=== PATIENT | female | born 1960 | race Caucasian/White ===

== ENCOUNTER 2022-07-01 14:45 | Outpatient (CLI) | payer MEDICARE, MEDICAID, SELFPAY ==
[2022-07-01 21:23] LABS: Chloride* 98 mmol/L (96-114); Sodium* 139 mmol/L (135-149)
[2022-07-01 21:36] LABS: Blood Urea Nitrogen* 27 mg/dL (7-30); Calcium* 9.4 mg/dL (8.4-10.6); Carbon Dioxide* 32 mmol/L (20-32); Creatinine* 1.3 mg/dL (0.5-1.5); Estimated Glomerular Filt Rate 46 ml/min; Glucose* 95 mg/dL (60-115)
== END 2022-07-01 14:46 | disposition home or self-care (01) ==
LOC: FRMREF 14:46
PROVIDERS: PCP Family Medicine; Visit Provider Family Medicine
DX: R73.03 Prediabetes (principal); I12.9 Hypertensive chronic kidney disease with stage 1 through stage 4 chronic kidney disease, or unspecified chronic kidney disease
CPT/HCPCS: 80048

== ENCOUNTER 2022-07-29 14:45 | Outpatient (CLI) | payer MEDICARE, MEDICAID, SELFPAY | END 2022-07-29 14:46 | disposition home or self-care (01) | LOC: FRMREF 08-02 11:16 | PROVIDERS: PCP Family Medicine; Visit Provider Family Medicine | DX: R39.198 Other difficulties with micturition (principal); I12.9 Hypertensive chronic kidney disease with stage 1 through stage 4 chronic kidney disease, or unspecified chronic kidney disease; N39.41 Urge incontinence; N18.30 Chronic kidney disease, stage 3 unspecified; E11.42 Type 2 diabetes mellitus with diabetic polyneuropathy | CPT/HCPCS: 87086 ==

== ENCOUNTER 2023-03-04 06:16 | Day surgery (SDC) | payer MEDICARE, MEDICAID, SELFPAY ==
[2023-03-04] VITALS (25 sets, daily range): BP systolic 87–129; BP diastolic 40–78; PULSE 56–78; RESP 16–20; TEMP 36.2–37.3; O2SAT 90–99; BMI 46.2
[2023-03-04] MEDS: LACTATED RINGERS 1000 ML 1,000 ML 100 ML IV (07:25)
[2023-03-04] MEDS: SODIUM CHLORIDE 0.9 % (FLUSH) 10 ML SYRINGE IVF (07:27)
[2023-03-04] MEDS: ACETAMINOPHEN 500 MG TABLET 1000 MG PO ×3 (07:48→21:33)
[2023-03-04] MEDS: OXYCODONE (CR) 10 MG TAB.ER.12H PO (07:49)
[2023-03-04] MEDS: CELECOXIB 200 MG CAPSULE PO (07:49)
[2023-03-04] MEDS: fentaNYL 100 MCG/2 ML inj IVP (08:05)
[2023-03-04] MEDS: MIDAZOLAM HCL 1 MG/ML inj IVP (08:05)
--- NOTE | 2023-03-04 08:15 | SUR.PREOP ---
TIME?OUT:?0800, left knee PT/RN/MDA?VERIFICATION?OF?SURGICAL?SITE,?PROCEDURE,?AND?CONSENT OBTAINED?PRIOR?TO?INVASIVE?PROCEDURE.
[2023-03-04] MEDS: CEFAZOLIN 2 GM INJ IVP (09:07)
--- NOTE | 2023-03-04 09:20 | W.PM.NB ---
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 Images saved: Yes Medications given in 5ml increments after negative aspiration: Ropivicaine %: 0.5 mL: 20 Needle gauge: 20 Decadron (mg): 10 Precedex (mcg): 25 Patient tolerated procedure well: Yes Additional comments: Needle noted adjacent to nerve Block Charges Block Charge (with Pro Fee): Femoral Nerve Use of Ultrasound Machine for Block: Yes- US Guidance/pain block
--- NOTE | 2023-03-04 09:20 | W.PM.NB ---
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
--- NOTE | 2023-03-04 09:21 | W.ANESCHARGE ---
Anesthesia Charges Start Date/Time Anesthesia Start Date: 03/04/23 Anesthesia Start Time: 08:47 Stop Date/Time Anesthesia Stop Date: 03/04/23 Anesthesia Stop Time: 11:01
--- NOTE | 2023-03-04 09:27 | SUR.OPER ---
PATIENT QUESTIONS ANSWERED SATISFACTORILY PREOPERATIVELY.? PATIENT BROUGHT TO OR #3 PER CART AFTER ADMINISTRATION OF A BLOCK.? Patient positioned supine on OR #3 bed.? The perioperative?team supported arms bilaterally on arm boards.? Final approval of positioning by surgeon.?
--- NOTE | 2023-03-04 10:10 | CRLHL7_ITS ---
For Patients: As a result of the Cures Act, medical imaging exams and procedure reports are released immediately into your electronic medical record. You may view this report before your referring provider. If you have questions, please contact your health care provider. Indication: Postop TKA Technique: Two views left knee Findings/Impression: Hardware from a left total knee arthroplasty is in satisfactory position. Bone alignment is normal. No sign of acute fracture. Postop changes are within normal limits. Dictated by Jesus Hsu MD @ 03/04/2023 11:20:44 AM (Electronically Signed)
--- NOTE | 2023-03-04 10:13 | PM.ORPRC ---
Procedure Note Date of procedure: 03/04/23 Procedure: PREOPERATIVE DIAGNOSIS: Left knee osteoarthritis POSTOPERATIVE DIAGNOSIS: Left knee osteoarthritis NAME OF OPERATION: Left total knee arthroplasty SURGEON: Enrique Ribeiro MD NEGOTIATOR SALES: [employer]ENN[employer] ANESTHESIA: Spinal ESTIMATED BLOOD LOSS: 0 mL COMPLICATIONS: None SPECIMENS: None DRAINS: None PREOPERATIVE ANTIBIOTICS: Ancef 2 grams, antibiotic impregnated cement IMPLANTS: 1. J&J Attune #4 posterior stabilized femur 2. #4 fixed-bearing tibia, 14 mm x 50 mm stem 3. #4 posterior stabilized, 5 mm fixed-bearing polyethylene 4. 35 patella INDICATIONS: The patient is a 62-year-old with a longstanding history of severe, unrelenting left knee pain secondary to end-stage (grade IV) left knee osteoarthritis. Despite appropriate nonoperative management, including activity modification, anti-inflammatories, ltqm-bwv-qrypjne pain medication, bracing, physical therapy, and injections they continue to have pain and disability. Operative intervention was offered. The risks, benefits and expected outcomes were discussed in detail. These included but were not limited to: Infection, bleeding, injury to blood vessel or nerve, venous thromboembolism. All questions were answered to their satisfaction. Use of an financial services assistant was necessary throughout the case for patient positioning and safety, soft tissue retraction, and closure. PROCEDURE: Spinal anesthesia was administered. The patient was placed supine on the operating table. The financial services assistant made sure the patient was positioned appropriately. The lower extremity was prepped and draped in the usual sterile fashion. The limb was exsanguinated with the Ren bandage. The pneumatic tourniquet was inflated to 300 mmHg. A standard anterior incision was made with the knee in flexion. Subcutaneous dissection was sharply taken through fascial layer #1. Full-thickness medial and lateral flaps were elevated. The financial services assistant retracted the soft tissues and protected them throughout the case. A standard medial parapatellar approach was made. The patella was everted. The infrapatellar fat pad was preserved. The menisci and cruciate ligaments were sharply d?brided. Marginal osteophytes were d?brided with the rongeur. The drill was used to penetrate the femoral canal. The canal was aspirated and irrigated with pulse lavage. The intramedullary femoral guide was placed for a 5-degree valgus cut, removing 10 mm off the distal femur. The saw was used to make the cut. Whitesides line and the trans epicondylar axis were marked. The femoral sizing guide was pinned onto the distal femur. Three degrees of external rotation nicely parallels the transepicondylar axis. Pins were placed for posterior referencing. The four-in-one cutting guide was pinned onto the distal femur. The anterior, posterior, and chamfer cuts were made. The financial services assistant protected the collateral ligaments. The box cutting guide was pinned. The box cuts were made. The boxed trial was placed and was an excellent fit. Drill holes for the lugs were made. Attention was then turned to the proximal tibia. The extramedullary tibial guide was placed for a neutral varus/valgus cut with 5 degrees of posterior slope, removing 1 mm based off the medial tibial surface. The financial services assistant protected the collateral ligaments and the neurovascular bundle. The saw was used to make the cut. Trial components were placed. The knee was nicely balanced in both flexion and extension. The trial components were removed. The tray was placed in appropriate rotation, parallel to our tibial cutting pins. It was pinned by the financial services assistant and the drills were used. The stemmed trial tibial tray was placed and the punch was used. The tray was removed. The punch was used again. We placed a bone plug in the femoral canal. Attention was then turned to the patella. Tangirnaq patellar thickness was 23 mm. The lobster claw resection guide was used with the 9.5 mm nasir. The saw was used to make the cut. Drill holes were made by the financial services assistant. The trial was placed and was an excellent fit. Cancellous surfaces were irrigated with pulse lavage and thoroughly dried by the financial services assistant. We cemented the tibial component, then the femoral component. We impacted the 5 mm polyethylene onto the tibial tray. The knee was brought into full extension. We then cemented the patellar component. Excessive cement was removed. The cement was allowed to harden. The knee was taken through a range of motion and was found to be nicely balanced in both flexion and extension. The patella tracks centrally. The financial services assistant did a three minute dilute Betadine solution soak. The financial services assistant irrigated the wound with 3 liters of normal saline via pulse lavage. The financial services assistant reapproximated the extensor mechanism with #1 Vicryl in an interrupted dwhkgj-rs-otgoi fashion. The financial services assistant then ran the extensor mechanism with a #1 PDO Stratafix. The financial services assistant closed the subcutaneous tissues with a 3-0 Stratafix and the skin with a running 3-0 Stratafix in a subcuticular fashion. Glue was used to seal the skin. The financial services assistant placed a dry dressing, ROSEANNA stocking, and Polar Care. Sponge and needle counts were correct x2. The patient tolerated the procedure well. There were no apparent complications. They were carefully transferred to the hospital bed and taken to the postanesthesia care unit in satisfactory condition. PLAN: The patient will be mobilized with physical therapy. Aspirin will be used for DVT prophylaxis. They will be discharged to home once medically appropriate.
[2023-03-04] MEDS: LACTATED RINGERS 1000 ML 1,000 ML 35 ML IV (10:56)
--- NOTE | 2023-03-04 11:11 | W.ANESCHARGE ---
Anesthesia Charges Start Date/Time Anesthesia Start Date: 03/04/23 Anesthesia Start Time: 08:47 Stop Date/Time Anesthesia Stop Date: 03/04/23 Anesthesia Stop Time: 11:01
[2023-03-04] MEDS: LACTATED RINGERS 1000 ML 1,000 ML 75 ML IV (13:00)
--- NOTE | 2023-03-04 15:22 | PC.NURSE ---
Patient arrived to the floor at 1135 am, alert and oriented x 3. Oriented patient to room, call light. Lung sounds clear, bowel sounds active x 4. O2 on at 2L per NC due to sats in upper 80s post surgical. Patient sats 99% upon arrival to unit, decreased to 1L and maintaining sats at 97%. Oxygen discontinued at 1350, patient requested oxygen to be placed back on at 1430 for comfort. Dressing to left knee CDI, cryocuff in place. Assisted patient to the bedside commode, able to void x 1. Tolerating fluids without nausea/vomiting. Up to chair, able to ambulate with walker. Pain reported at 1-2/10, given prn tylenol at 1445 per patient request.
[2023-03-04] MEDS: OXYCODONE 5 MG TABLET PO ×3 (16:44→23:27)
[2023-03-04] MEDS: CEFAZOLIN 2 GM in 0.9 % SODIUM CHLORIDE Mini-bag 100 ML IVPB ×2 (16:44→23:45)
[2023-03-04] MEDS: ASPIRIN 81 MG TABLET EC PO (21:33)
[2023-03-04] MEDS: SENNOSIDES 1 TAB TABLET 2 TAB PO (21:34)
--- NOTE | 2023-03-04 21:45 | PC.NURSE ---
Shift Note [id number]: Pt friendly, cooperative, and able to verbalize her needs. Moves well with assist x1 with GB and walker. Tolerating regular diet without difficulty. Great urine output. Surgical dressing to left knee is C,D,&I with active ice in place. Pain is well controlled with scheduled Tylenol and PRN 5mg Oxycodone. Pt plans to discharge home tomorrow with assistance from her sister. She has also requested a shower prior to discharge if possible.
[2023-03-05] MEDS: MELATONIN 3 MG TABLET PO (00:48)
[2023-03-05 03:00] VITALS: RESP 18
[2023-03-05] MEDS: OXYCODONE 5 MG TABLET PO ×3 (06:10→11:26)
[2023-03-05] MEDS: ACETAMINOPHEN 500 MG TABLET 1000 MG PO (06:11)
[2023-03-05 07:00] VITALS: BP 97/55; PULSE 69; RESP 18; TEMP 37.1; O2SAT 93; O2SAT 96
[2023-03-05 07:34] LABS: Basophils Percent Auto 0.1 % (0.0-3.0); Hematocrit 32.7 % (33.0-51.0); Hemoglobin* 10.2 gm/dL (12.0-16.0); Immature Granulocytes Pct Auto 0.2 %; Lymphocytes Percent Auto 14.9 % (20-44); Mean Corpuscular HGB Conc 31 gm/dL (32-36); Mean Corpuscular Hemoglobin 30 pg (26-34); Mean Corpuscular Volume 97 fL (80-100); Monocytes Percent Auto 7.9 % (0.0-11.0); Neutrophils Percent Auto 76.9 % (42.0-72.0); Platelet Count* 310 K/uL (140-440); RDW Coefficient of Variation % 13.9 % (11.5-15.5); Red Blood Count 3.39 m/uL (4.00-5.20); White Blood Count* 12.54 K/uL (4.50-11.00)
[2023-03-05 07:36] LABS: Sodium* 134 mmol/L (135-149)
[2023-03-05 07:39] LABS: Creatinine* 1.2 mg/dL (0.5-1.5); Est. Creatinine Clearance* 37.95; Estimated Glomerular Filt Rate 51 ml/min
[2023-03-05 07:40] LABS: Blood Urea Nitrogen* 26 mg/dL (7-30)
[2023-03-05 07:47] LABS: Slide Review Reflex No
[2023-03-05] MEDS: CEFAZOLIN 2 GM in 0.9 % SODIUM CHLORIDE Mini-bag 100 ML IVPB (07:54)
--- NOTE | 2023-03-05 08:51 | PM.ORPN ---
Subjective Subjective Time Seen by Provider: 07:20 Date Seen: 03/05/23 Principal diagnosis: Left total knee arthroplasty 03/04/2020 Interval history: Leigh is comfortable this morning. She has been ambulating well. She will discharge to home today. Ortho Exam Narrative Exam Narrative: Alert and oriented x3. Patient is in no acute distress. Converses without labored breathing. Hearing is grossly intact. Ambulates with a walker. Examination of the left knee shows the dressing is intact. Mild soft tissue edema. Mild effusion. She is able to straight leg raise. CMS is intact left lower extremity quad strength 5/5 bilateral calves are soft and nontender Const Vital Signs, click to edit/add: Vital Signs - 24 hr 03/04/23 10:56 03/04/23 11:00 03/04/23 11:05 Temperature 97.5 F L Pulse Rate 67 67 62 Pulse Rate [Right Pulse Oximeter] Respiratory Rate 20 19 20 Blood Pressure 92/69 98/56 L 109/56 L Blood Pressure [Left Arm] Pulse Oximetry 94 96 97 Oxygen Delivery Method Nasal Cannula Oxygen Flow Rate 2 03/04/23 11:10 03/04/23 11:15 03/04/23 11:20 Temperature 97.3 F L Pulse Rate 67 65 64 Pulse Rate [Right Pulse Oximeter] Respiratory Rate 16 16 18 Blood Pressure 92/53 L 99/50 L 102/53 L Blood Pressure [Left Arm] Pulse Oximetry 98 94 93 Oxygen Delivery Method Room Air Oxygen Flow Rate 03/04/23 11:25 03/04/23 13:28 03/04/23 11:45 Temperature 97.9 F 97.9 F Pulse Rate 66 68 Pulse Rate [Right Pulse Oximeter] 69 Respiratory Rate 16 18 18 Blood Pressure 100/56 L Blood Pressure [Left Arm] 98/46 L 108/49 L Pulse Oximetry 92 97 Oxygen Delivery Method Nasal Cannula Nasal Cannula Oxygen Flow Rate 2 1 03/04/23 12:00 03/04/23 12:15 03/04/23 12:30 Temperature 98.0 F Pulse Rate Pulse Rate [Right Pulse Oximeter] 64 62 65 Respiratory Rate 18 16 18 Blood Pressure Blood Pressure [Left Arm] 110/50 L 101/53 L 99/61 Pulse Oximetry 98 98 97 Oxygen Delivery Method Nasal Cannula Nasal Cannula Room Air Oxygen Flow Rate 1 1 03/04/23 11:43 03/04/23 15:00 03/04/23 15:00 Temperature 97.9 F Pulse Rate Pulse Rate [Right Pulse Oximeter] 69 78 Respiratory Rate 18 20 Blood Pressure Blood Pressure [Left Arm] 108/49 L Pulse Oximetry 98 90 Oxygen Delivery Method Nasal Cannula Oxygen Flow Rate 1 03/04/23 15:00 03/04/23 15:00 03/04/23 16:00 Temperature 97.6 F 98.1 F Pulse Rate Pulse Rate [Right Pulse Oximeter] 67 76 Respiratory Rate 20 18 18 Blood Pressure Blood Pressure [Left Arm] 110/40 L 105/47 L Pulse Oximetry 90 95 92 Oxygen Delivery Method Room Air Room Air Room Air Oxygen Flow Rate 03/04/23 17:00 03/04/23 19:08 03/04/23 23:43 Temperature 97.1 F L 97.7 F 99.1 F Pulse Rate Pulse Rate [Right Pulse Oximeter] 74 72 71 Respiratory Rate 18 18 18 Blood Pressure Blood Pressure [Left Arm] 129/76 124/68 97/74 Pulse Oximetry 93 93 94 Oxygen Delivery Method Room Air Room Air Room Air Oxygen Flow Rate 03/04/23 23:00 03/04/23 23:00 03/04/23 23:00 Temperature Pulse Rate Pulse Rate [Right Pulse Oximeter] 71 Respiratory Rate 18 18 Blood Pressure Blood Pressure [Left Arm] Pulse Oximetry 94 94 Oxygen Delivery Method Room Air Oxygen Flow Rate 03/05/23 03:00 03/05/23 07:00 Temperature 98.8 F Pulse Rate Pulse Rate [Right Pulse Oximeter] 69 Respiratory Rate 18 18 Blood Pressure Blood Pressure [Left Arm] 97/55 L Pulse Oximetry 96 Oxygen Delivery Method Oxygen Flow Rate Assessment and Plan Assessment and plan (1) Status post total left knee replacement: Problem details: 03/04/2023, Dr. Ribeiro Status: Acute Plan Plan for discharge is today to home if they meet discharge criteria. DVT prophylaxis includes aspirin 81 mg twice daily x1 month, Juan stockings x1 month may remove for 1 hr per day, frequent ambulation Remove dressing in 1 week. Observe wound and phone Orthopedics with any questions or concerns Return to clinic in 1 week for a wound check Return to clinic in [address] Ribeiro Minimize narcotic use. Wean off and discontinue soon as possible. Activities as tolerated. No strenuous activity. Outpatient physical therapy as scheduled. Ice and elevate the operative extremity. No restriction on ice.
[2023-03-05] MEDS: SENNOSIDES 1 TAB TABLET 2 TAB PO (09:01)
[2023-03-05] MEDS: METFORMIN ER 500 MG 1000 MG PO (09:02)
[2023-03-05] MEDS: FAMOTIDINE 20 MG TABLET PO (09:02)
[2023-03-05] MEDS: VENLAFAXINE ER 75 MG CAPSULE PO (09:02)
[2023-03-05] MEDS: BUSPIRONE 10 MG TABLET PO (09:02)
[2023-03-05] MEDS: ASPIRIN 81 MG TABLET EC PO (09:02)
[2023-03-05 09:05] VITALS: BP 100/56; PULSE 68; RESP 18; TEMP 37.1
--- NOTE | 2023-03-05 10:38 | PM.IMCN1 ---
Date of Consult Consult date: 03/05/23 Primary Care Provider: Dasha Goss MD Consult Narrative Narrative: Leigh Ferro is a 62 year old female who we were asked to see to manage medical problems as she recovers from joint replacement. She feels well and has no concerns today. She has been eating and moving about with physical therapy without any problems. Hypertension - her blood pressure had been low running low even as an outpatient and her doctor send in a prescription for decreasing her lisinopril from 40 mg a day to 30 mg a day at her preop appointment. That prescription had not arrived in the mail when she came in for surgery. She suspects that it will be there when she gets home. Her stool systolic blood pressures have been running in the 90s to 110s postoperatively. She has not had any lightheadedness. Her other medical problems gastroesophageal reflux disease, PTSD, osteoarthritis, hyperlipidemia, panic disorder, type 2 diabetes (her A1c was 6.6 in June of 2022), depression, chronic kidney disease and mild asthma have been clinically stable. Review of Systems Status of ROS: Reports: 10 or more systems reviewed and unremarkable except as noted in History and below [facility] Medical History Chronic pain ?G89.29 - Other chronic pain (ICD-10) Degenerative disk disease Fibromyalgia ?M79.7 - Fibromyalgia (ICD-10) Generalized anxiety disorder ?F41.1 - Generalized anxiety disorder (ICD-10) HTN (hypertension) ?I10 - Essential (primary) hypertension (ICD-10) Hx of major depression ?Z86.59 - Personal history of other mental and behavioral disorders (ICD-10) Hyperlipidemia ?E78.5 - Hyperlipidemia, unspecified (ICD-10) Medical marijuana use ?Z79.899 - Other group home (current) drug therapy (ICD-10) Mild asthma ?J45.909 - Unspecified asthma, uncomplicated (ICD-10) Osteoarthritis ?M19.90 - Unspecified osteoarthritis, unspecified site (ICD-10) Panic disorder [episodic paroxysmal anxiety] ?F41.0 - Panic disorder [episodic paroxysmal anxiety] (ICD-10) PTSD (post-traumatic stress disorder) ?F43.10 - Post-traumatic stress disorder, unspecified (ICD-10) Stage 3 chronic kidney disease due to benign hypertension ?I12.9 - Hypertensive chronic kidney disease with stage 1 through stage 4 chronic kidney disease, or unspecified chronic kidney disease (ICD-10) ?N18.30 - Chronic kidney disease, stage 3 unspecified (ICD-10) Type 2 diabetes mellitus with peripheral neuropathy ?E11.42 - Type 2 diabetes mellitus with diabetic polyneuropathy (ICD-10) Surgical History Cornea replaced by transplant ?Z94.7 - Corneal transplant status (ICD-10) H/O arthroscopy of shoulder ?Z98.890 - Other specified postprocedural states (ICD-10) H/O cataract removal with insertion of prosthetic lens (~2009) ?Z98.49 - Cataract extraction status, unspecified eye (ICD-10) ?Z96.1 - Presence of intraocular lens (ICD-10) H/O: hysterectomy (~2000) ?Z90.710 - Acquired absence of both cervix and uterus (ICD-10) S/P left knee arthroscopy ?Z98.890 - Other specified postprocedural states (ICD-10) Status post total left knee replacement (03/04/23) ?Z96.652 - Presence of left artificial knee joint (ICD-10) Family History (Updated 02/20/23 @ 11:29 by Melida Silva RN) Aunt Breast cancer Father Alcohol abuse Tobacco abuse Cancer Maternal Grandfather Black lung disease Paternal Grandfather Asthma Paternal Grandmother Stroke Maternal Grandmother Diabetes Coronary artery disease Arthritis Glaucoma High blood pressure Mother Hypothyroidism Breast cancer Lung cancer High blood pressure Sister Arthritis Hyperlipidemia High blood pressure Pituitary tumor Uncle Breast cancer Social History Smoking Status: Former smoker What tobacco products do you use: cigarettes Smoking packs per day: 1 Smoking cigarettes per day: 20.0 Years smoked: 40 Smoking pack-years: 40.00 Smoking quit date/years: <= 15 years ago Do you use any of these nicotine containing products: None How often do you have a drink containing alcohol: monthly or less Alcohol type: beer, wine and hard liquor How many standard drinks containing alcohol do you have on a typical day: 1 or 2 How often do you have six or more drinks on one occasion: Never AUDIT-C Alcohol total score: 1 Non-prescribed substance use: denies use Caffeine: Yes (2 cups coffee/AM) service: No Meds Home Medications and Allergies Home Medications Medication Instructions Recorded Confirmed Type aspirin 81 mg tablet,delayed 81 mg PO DAILY 07/01/22 03/04/23 History release lorazepam 0.5 mg tablet 0.5 mg PO DAILY PRN 07/01/22 03/04/23 History omega 5-zvo-ryd-fish oil 1,000 mg 1 cap PO DAILY 07/01/22 03/04/23 History (120 mg-180 mg) capsule (Fish Oil) albuterol sulfate 90 mcg/actuation 2 inh inhalation Q4-6H PRN 07/29/22 03/04/23 History aerosol inhaler cimetidine 200 mg tablet 200 mg PO DAILY 07/29/22 03/04/23 History loratadine 10 mg tablet 10 mg PO DAILY 07/29/22 03/04/23 History metformin 500 mg tablet,extended 1,000 mg PO BID 07/29/22 03/04/23 History release 24 hr metoprolol succinate 50 mg 50 mg PO DAILY 07/29/22 03/04/23 History tablet,extended release 24 hr nystatin 100,000 unit/gram topical 1 applic topical QDAY PRN 07/29/22 03/03/23 History cream nystatin 100,000 unit/gram topical 1 applic topical DAILY PRN 07/29/22 03/03/23 History powder canagliflozin 300 mg tablet 300 mg PO DAILY 08/12/22 03/04/23 History (Invokana) cholecalciferol (vitamin D3) 125 125 mcg PO DAILY 08/12/22 03/04/23 History mcg (5,000 unit) capsule rosuvastatin 20 mg tablet 20 mg PO HS 08/12/22 03/04/23 History melatonin 3 mg tablet 3 mg PO QHS 01/24/23 03/04/23 History phentermine 37.5 mg tablet 37.5 mg PO DAILY 01/24/23 03/04/23 History oxycodone-acetaminophen 5 mg-325 1 tab PO DAILY PRN pain 02/28/23 03/04/23 History mg tablet (Percocet) lisinopril 30 mg tablet 30 mg PO DAILY 03/03/23 03/04/23 History Allergies Allergy/AdvReac Type Severity Reaction Status Date / Time orphenadrine Allergy Severe itchy eyes Verified 02/28/23 14:23 and throat cat dander Allergy Verified 02/28/23 14:23 guaifenesin Allergy Anaphylaxis Verified 02/28/23 14:23 hydrocodone AdvReac Intermediate vomitting Verified 02/28/23 14:23 Exam Const: Vital Signs, click to edit/add: Vital Signs - 24 hr 03/04/23 10:56 03/04/23 11:00 03/04/23 11:05 Temperature 97.5 F L Pulse Rate 67 67 62 Pulse Rate [Right Pulse Oximeter] Respiratory Rate 20 19 20 Blood Pressure 92/69 98/56 L 109/56 L Blood Pressure [Le ft Arm] Pulse Oximetry 94 96 97 Oxygen Delivery Me thod Nasal Cannula Oxygen Flow Rate 2 03/04/23 11:10 03/04/23 11:15 03/04/23 11:20 Temperature 97.3 F L Pulse Rate 67 65 64 Pulse Rate [Right Pulse Oximeter] Respiratory Rate 16 16 18 Blood Pressure 92/53 L 99/50 L 102/53 L Blood Pressure [Le ft Arm] Pulse Oximetry 98 94 93 Oxygen Delivery Me thod Room Air Oxygen Flow Rate 03/04/23 11:25 03/04/23 13:28 03/04/23 11:45 Temperature 97.9 F 97.9 F Pulse Rate 66 68 Pulse Rate [Right Pulse Oximeter] 69 Respiratory Rate 16 18 18 Blood Pressure 100/56 L Blood Pressure [Le ft Arm] 98/46 L 108/49 L Pulse Oximetry 92 97 Oxygen Delivery Me thod Nasal Cannula Nasal Cannula Oxygen Flow Rate 2 1 03/04/23 12:00 03/04/23 12:15 03/04/23 12:30 Temperature 98.0 F Pulse Rate Pulse Rate [Right Pulse Oximeter] 64 62 65 Respiratory Rate 18 16 18 Blood Pressure Blood Pressure [Le ft Arm] 110/50 L 101/53 L 99/61 Pulse Oximetry 98 98 97 Oxygen Delivery Me thod Nasal Cannula Nasal Cannula Room Air Oxygen Flow Rate 1 1 03/04/23 11:43 03/04/23 15:00 03/04/23 15:00 Temperature 97.9 F Pulse Rate Pulse Rate [Right Pulse Oximeter] 69 78 Respiratory Rate 18 20 Blood Pressure Blood Pressure [Le ft Arm] 108/49 L Pulse Oximetry 98 90 Oxygen Delivery Me thod Nasal Cannula Oxygen Flow Rate 1 03/04/23 15:00 03/04/23 15:00 03/04/23 16:00 Temperature 97.6 F 98.1 F Pulse Rate Pulse Rate [Right Pulse Oximeter] 67 76 Respiratory Rate 20 18 18 Blood Pressure Blood Pressure [Le ft Arm] 110/40 L 105/47 L Pulse Oximetry 90 95 92 Oxygen Delivery Me thod Room Air Room Air Room Air Oxygen Flow Rate 03/04/23 17:00 03/04/23 19:08 03/04/23 23:43 Temperature 97.1 F L 97.7 F 99.1 F Pulse Rate Pulse Rate [Right Pulse Oximeter] 74 72 71 Respiratory Rate 18 18 18 Blood Pressure Blood Pressure [Le ft Arm] 129/76 124/68 97/74 Pulse Oximetry 93 93 94 Oxygen Delivery Me thod Room Air Room Air Room Air Oxygen Flow Rate 03/04/23 23:00 03/04/23 23:00 03/04/23 23:00 Temperature Pulse Rate Pulse Rate [Right Pulse Oximeter] 71 Respiratory Rate 18 18 Blood Pressure Blood Pressure [Le ft Arm] Pulse Oximetry 94 94 Oxygen Delivery Me thod Room Air Oxygen Flow Rate 03/05/23 03:00 03/05/23 07:00 03/05/23 09:05 Temperature 98.8 F 98.8 F Pulse Rate 68 Pulse Rate [Right Pulse Oximeter] 69 Respiratory Rate 18 18 18 Blood Pressure 100/56 L Blood Pressure [Le ft Arm] 97/55 L Pulse Oximetry 96 Oxygen Delivery Me thod Oxygen Flow Rate Cardiovascular regular rate and rhythm. Lungs clear to auscultation. Abdomen positive bowel sounds soft nontender. Skin is warm and dry without rashes. Documenting provider has reviewed patient's vital signs: yes Labs Labs: Short CBC 03/05/23 Range/Units 06:59 WBC 12.54 H (4.50-11.00) K/uL Hgb 10.2 L (12.0-16.0) gm/dL Hct 32.7 L (33.0-51.0) % Plt Count 310 (140-440) K/uL BMP 03/05/23 06:59 Sodium 134 L Potassium 5.0 BUN 26 Creatinine 1.2 Assessment and Plan Assessment and plan (1) Status post total left knee replacement: Problem comment: 03/04/2023, Dr. Ribeiro Status: Acute (2) HTN (hypertension): Status: Acute Plan If her new prescription for lisinopril 30 mg daily has not arrived in the mail yet, she will take her 40 mg tablets and take half a tablet twice daily. She otherwise will go home today on her usual home medications
[2023-03-05 11:00] VITALS: BP 108/47; PULSE 71; RESP 18; TEMP 37.2; O2SAT 93
[2023-03-05] MEDS: LORATADINE 10 MG TABLET PO (11:18)
[2023-03-05 13:07] LABS: INR 0.88 (0.91-1.10); Prothrombin Time 12.5 Seconds
== END 2023-03-05 11:45 | disposition home or self-care (01) ==
LOC: OR 06:18 → MEDSURG 06:26
PROVIDERS: PCP Family Medicine; Visit Provider Orthopaedic Surgery
PROC: (CPT 27447; principal; 2023-03-04 08:00)
DX: M17.12 Unilateral primary osteoarthritis, left knee (principal); I12.9 Hypertensive chronic kidney disease with stage 1 through stage 4 chronic kidney disease, or unspecified chronic kidney disease; E11.22 Type 2 diabetes mellitus with diabetic chronic kidney disease; N18.2 Chronic kidney disease, stage 2 (mild); K21.9 Gastro-esophageal reflux disease without esophagitis; E78.5 Hyperlipidemia, unspecified; G89.18 Other acute postprocedural pain
CPT/HCPCS: 27447; 01402; 36415; 64447; 64454; 73560; 76942; 82565; 82962; 84132; 84295; 84520; 85025; 85610; 94761; 97110; 97116; 97162; 97165; 97535; A9270; C1776; J0690; J1100; J2250; J2370; J2405; J2704; J2795; J3010; J3490; J7120

== ENCOUNTER 2023-05-06 13:00 | Outpatient (RCR) | payer MEDICARE, MEDICAID, SELFPAY | END 2023-07-04 09:20 | disposition home or self-care (01) | PROVIDERS: PCP Family Medicine; Visit Provider Orthopaedic Surgery | DX: M17.12 Unilateral primary osteoarthritis, left knee (principal); G89.29 Other chronic pain; Z96.659 Presence of unspecified artificial knee joint; Z74.09 Other reduced mobility; Z51.89 Encounter for other specified aftercare | CPT/HCPCS: 97016; 97032; 97110; 97112; 97116; 97140; 97161; 97164 ==

== ENCOUNTER 2023-07-22 14:15 | Outpatient (RCR) | payer MEDICARE, MEDICAID, SELFPAY ==
--- NOTE | 2023-07-08 08:47 | PT.OPE ---
[place] Outpatient Eval PT [facility] Outpatient Eval Start: 07/03/23 13:13 Freq: Status: Active Protocol: Document 07/03/23 13:14 BMS (Rec: 07/03/23 15:11 BMS [id number]) E-signed By Celine Hassan PT Physical Therapy Outpatient Evaluation Insurance Information Recert Due Date 09/30/23 Insurance Name Medicare B,Medicaid Provider Fax Number internal Medical Diagnosis other chronic pain G89.29 left ankle, left shoulder, back pain, neck pain, hips bilaterally - Everything! :) Treating Diagnosis cervicalgia M54.2 lumbar back pain M54.50 B hip pain M25.559 L shoulder M79.602 L ankle M25.572 fibromyalgia M79.7 Subjective Subjective zingers down christian on L, numbness patella to ankle anterior. cramps B come and go in calves , also bottom of foot. neck pain into headaches - have MRI 11/29/20 with multilevel spondylosis and facet arthropath, C5-6 bulge, C2-3 advanced foraminal narrowing. Pain Comments neck and HS 2/10 inc t 7/10 stiff and sore neck and back and hips. low back 3-7/10 limiting ability to walk, across lowb ack from SI down B hip laterally L ankle after L TKA this spring. L arm hurts, had arthroscopic ~ 10 years ago. Current Work Status Unemployed Occupation not currently working Precautions Treatment Precautions/Contraindications diabetes, depression, anxiety, HTN, scoliosis, ex induced asthma, fibromyalgia, OA, PTSD per patient report. has had steroid injection sin back. sees chriopractor. Therapy Limitations/Systems Review Affect,Other Medical Problem Objective Range of Motion CERVICAL: flex WNL but pain and tightness mid cervical to upper thoracic B through paraspinals and inc headache. ext mod loss with 'crunchy' in neck, does not recreate dizziness to date rotation L =55 with tightness and pain on Right levator, UT and paraspinals; R rotation = 60 SB L=20 with pain and tightness in neck and R=25 with no pain nor feeling of restriction TRUNK: flex fingertips to distal christian with L knee flex, no apparent rib hump. Ext limited with pain at SI and into L1-L3. L SB mod restricted with pain and tightness sacral region and reports 'little numbness here' (L lateral forearm), R SB WNL SHOULDERS: flex and abduct= R 160, L 120 ER WFL, lack L ELBOWS, wrists, ankles WFL HIPS: B flex WNL passively, L hip ER 25, R 35, ext not assessed but expect it to be lacking based on posture and movement patterns. Knees: L knee lacks 10 deg flex in standing, 10-15 in supine Strength MMT seated: Cervical: flex, ext, b SB and shrug 5/5 SHOULDERS: flex, abduct B 4/5 ER/IR 5/5 with pain supraspinatus 4/5 B pain bicep tricep 4/5. seated hip flex R= 5/5, L=4+/5 . quad R=4+/5, L=5/5 with pain in IL groin seated hip abduct and adduct L 4/5 R = 5/5 ankles B 5/5 with PF, DV, inv, ev Swelling pitting edema B ankle Palpation very restricted myofascial throughout neck and lowback, trigger points in glute and piriformis, decreased thoracolumbar mobility, cspine and shoulders require further assess at future visit. Balance & Gait wider base, some lateral lurch , balance not assessed this date. does lack full L knee extension ROM, dec pushoff, Posture mild spinal scoliosis, L knee flex in standing, head forward , extra weight. Sensation/Reflexes DTR bicep, tricep, brachioradialis, quad and achilles all L=R Other/Pertinent Objective further special testing will follow at future appt. Lumbar MRI read to therapist by patient: L1-2 disc dessication L2-4 min canal narrowing tiny to small broad-based disc bulge w slight effacement of ventral thecal sac and slight spinal canal narrowing L5-S1 post annular tear w chronic lower axial back pain small central disc protrusion and small canal narrowing central protrusion contacting ventral thecal sac B S1 n root impingement Assessment Assessment/Impression Patient is 62 yo female referred for multiple areas of pain, chronic pain conditions including arthritis and fibromyalgia, and past medical hx + for injuries including head injury after being thrown from horse as well as surgeries including TKA and thumb MCP replacement. She does have long medical hx with scanned documents in EMR that may be reviewed. Subjective report of hx includes diabetes (on metformin and another medication), depression on effexor, HTN on lisinopril, exercise induced asthma, fibromyalgia, OA, and mental health including PTSD and anxiety. She indicates strong motivation to manage pain, improve strength and tolerance as well as weight loss as she wishes to remain independent, and to be able to ride a horse again. Current c/o chronic pain including neck, low back, B hips, L ankle and L arm as well as widespread soreness and pain. She did have TKA L and did not fully regain or maintain extension, has not done her ex program since completing therapy. Patient consistently indicates that she wants to go to gym and increase walking ability but has not initiated program as recommended previously due to chronic pain. She presents today with limited neck rotation, generalized lack of endurance and weakness, decreased core and hip strength, and impaired hip ROM , impaired balance. Patient indicates motivation to participate in exercise program and self care instructions. She is appropriate for skilled physical therapy to imrpove her mobility, strength and function while managing chronic pain. Primary Functional Limitations standing, walking, bed mobility, reaching, lifting, stepping, carrying, exercise and activity tolerance Plan of Care Rehabilitation Potential Good Rehabilitation Potential Comments multiple comorbidities, chronic pain and physical and mental conditions may prolong recovery and impact tolerance of interventions. Physical Therapy Goals 1) Pt will demo I with home program for flexibility, strength, mobility, gait and balance. 2) Pt demo ability to stand and walk > 15 min without increased pain into lowback and hips 3) Pt report ability to wash hair without increased pain in neck or shoulders and without UE weakness 4) Pt demo ability to lift with proper technique for all aspects of independent living in own apartment. 5) Pt report ability to tolerate 30-45 min exercise and activity to further her goals of weight loss for health and eventual senior care goal of getting onto horse again. 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[employer]) Treatment Plan/Direct Interventions Electrical Stimulation,Gait Training,Heat,Ice/Cold/ Vasopneumatic,Joint Mobilization,Manual Therapy, Neuromuscular Re-ed,Self-Care/ Home Management,Therapeutic Activities,Therapeutic Exercises,Traction (Mechanical ),Ultrasound Frequency/Duration 1-2x/ week x 12 visits, will start 1x/ week pending ability to self manage Patient Will Be Discharged From Therapy Completion of LTG(s),Skills Plateau,Independent w/HEP, Independently Progressing Evaluation Billing Untimed Code Treatment Minutes 55 Complexity Moderate Certification Information Initial Certification Date 07/03/23 Ending Certification Date 09/30/23 Provider Signature Shows Agreement With POC & Medical Necessity Physician Signature & Date Requested Please Sign/Date Here Physician Comment/Change : Physician NPI Number #
== END 2023-11-19 23:59 | disposition home or self-care (01) ==
PROVIDERS: PCP Family Medicine; Visit Provider Family Medicine
DX: G89.29 Other chronic pain (principal); M54.2 Cervicalgia; M54.50 Low back pain, unspecified; M25.552 Pain in left hip; M25.551 Pain in right hip; M79.602 Pain in left arm; M25.572 Pain in left ankle and joints of left foot; M79.7 Fibromyalgia; Z51.89 Encounter for other specified aftercare
CPT/HCPCS: 97110; 97140; 97162

== ENCOUNTER 2023-07-25 09:27 | Outpatient (CLI) | payer MEDICARE, MEDICAID, SELFPAY ==
--- NOTE | 2023-07-25 10:26 | W.ANESCHARGE ---
Anesthesia Charges Start Date/Time Anesthesia Start Date: 07/25/23 Anesthesia Start Time: 10:03 Stop Date/Time Anesthesia Stop Date: 07/25/23 Anesthesia Stop Time: 10:33
--- NOTE | 2023-07-25 10:36 | W.ANESCHARGE ---
Anesthesia Charges Start Date/Time Anesthesia Start Date: 07/25/23 Anesthesia Start Time: 10:03 Stop Date/Time Anesthesia Stop Date: 07/25/23 Anesthesia Stop Time: 10:33
== END 2023-07-25 09:28 | disposition home or self-care (01) ==
PROVIDERS: PCP Family Medicine; Visit Provider Internal Medicine
DX: Z12.11 Encounter for screening for malignant neoplasm of colon (principal); K63.5 Polyp of colon; K57.30 Diverticulosis of large intestine without perforation or abscess without bleeding; Z86.010 Personal history of colon polyps
CPT/HCPCS: 00811; 45380; 88305; J2704

== ENCOUNTER 2023-08-04 13:16 | Outpatient (CLI) | payer MEDICARE, MEDICAID, SELFPAY | END 2023-08-04 13:17 | disposition home or self-care (01) | PROVIDERS: PCP Family Medicine; Visit Provider Family Medicine | DX: Z00.00 Encounter for general adult medical examination without abnormal findings (principal); D64.9 Anemia, unspecified; E78.5 Hyperlipidemia, unspecified; I10 Essential (primary) hypertension; E11.9 Type 2 diabetes mellitus without complications; Z11.59 Encounter for screening for other viral diseases; Z79.899 Other long term (current) drug therapy | CPT/HCPCS: 80061; 82043; 82570; 82607; 84156; 86803 ==

== ENCOUNTER 2023-11-03 14:29 | Outpatient (CLI) | payer MEDICARE, MEDICAID, SELFPAY | END 2023-11-03 14:30 | disposition home or self-care (01) | LOC: FRMREF 14:29 | PROVIDERS: PCP Family Medicine; Visit Provider Family Medicine | DX: D64.9 Anemia, unspecified (principal); E11.42 Type 2 diabetes mellitus with diabetic polyneuropathy; N18.30 Chronic kidney disease, stage 3 unspecified | CPT/HCPCS: 80053 ==

== ENCOUNTER 2023-11-06 14:44 | Outpatient (CLI) | payer MEDICARE, MEDICAID, SELFPAY | END 2023-11-06 14:45 | disposition home or self-care (01) | LOC: FRMREF 14:47 | PROVIDERS: PCP Family Medicine; Visit Provider Family Medicine | DX: I12.9 Hypertensive chronic kidney disease with stage 1 through stage 4 chronic kidney disease, or unspecified chronic kidney disease (principal); N18.30 Chronic kidney disease, stage 3 unspecified | CPT/HCPCS: 80048 ==

== ENCOUNTER 2024-07-15 14:03 | Outpatient (CLI) | payer MEDICARE, SELFPAY ==
--- OUTSIDE RECORDS SUMMARY | 2024-07-17 23:22 | XMS_ITS | Clinical Summary ---
Author Organization [facility] Address [address] [place] [address] Care Team Providers Care Plumbing Technician Name Role Phone Needs Pcp, Assignment Primary Care Provider [phone] Source Comments You are receiving this document as you are listed as the primary care provider,follow-up provider, or the patient has been referred to you for consultation.This is in compliance with the Medicare and[facility] EHR Incentive Program,which states Providers who transition their patient to another setting of careor provider of care or refers their patient to another provider of care shouldprovide summary care record for each transition of care or referral. [email or web address] Allergies Active Allergy Reactions Criticality Noted Date Comments Cat Hair Extract Other, see comments Low 01/27/2019 Stuffy nose Guaifenesin Anaphylaxis High 04/04/2009 PN: LW Reaction: Unknown Reaction Hydrocodone-Acetaminoph en Other, see comments High 12/13/2011 Medications Medication Sig Dispensed Refills Start Date End Date Status pregabalin (AKA LYRICA) 150 MG capsule Take 1 capsule by mouth 2 times daily. 04/04/2009 Active venlafaxine (AKA EFFEXOR) 75 MG tablet Take 1 tablet by mouth. LW Addl Instr:Indicated for: Depression 04/04/2009 Active tiZANidine (AKA ZANAFLEX) 4 MG capsule Take by mouth nightly. 04/04/2009 Active QUEtiapine (AKA SEROQUEL) 100 MG tablet Take 1 tablet by mouth daily (every 24 hours). 04/04/2009 Active omeprazole (PRILOSEC) 20 MG capsule Take 1 capsule by mouth daily (every 24 hours). LW Addl Instr:Indicated for: Acid Reflux 90 3 04/04/2009 Active unknown medication Indications: PN: 04/04/2009 Active LORazepam (AKA ATIVAN) 1 MG tablet Take 1 tablet by mouth 3 times daily as needed. LW Comment:Not Rx'd by ===> Clinician LW Addl Instr:Indicated for: Anxiety 04/04/2009 Active oxyCODONE-acetaminophe n (AKA PERCOCET) 5-325 MG tablet Take 1-2 tablets by mouth every 4 hours as needed. LW Comment:Not Rx'd by ===> Clinician LW Addl Instr:Maximum of 12 tablets/24 hours. 30 04/04/2009 Active cyclobenzaprine (AKA FLEXERIL) 10 MG tablet Take 1 tablet by mouth every morning. LW Addl Instr:Indicated for: Muscle Spasms 04/04/2009 Active nabumetone (AKA RELAFEN) 500 MG tablet Take 1 tablet by mouth 2 times daily. 180 3 04/04/2009 Active lisinopril-hydrochloro thiazide (AKA PRINZIDE;ZESTORETIC) 10-12.5 MG tablet Take 1 tablet by mouth daily (every 24 hours). LW Addl Instr:Indicated for: High Blood Pressure 90 3 04/04/2009 Active lisinopril (ZESTRIL) 30 MG tablet Take by mouth. 02/28/2023 Active KETOSTIX test strip 07/14/2023 Activ e aspirin 81 MG chewable tablet CHEW AND SWALLOW 1 TABLET BY MOUTH TWICE DAILY FOR DVT PREVENTION 03/05/2023 Active busPIRone (BUSPAR) 10 MG tablet 2020 Active INVOKANA 300 MG tablet 2022 Ac tive ZYRTEC ALLERGY 10 MG tablet 05/01/2023 Active L-Lysine HCl 500 MG Take 2 Tablets (1,000 mg) by mouth. Active metFORMIN XR (GLUCOPHAGE XR) 500 MG 24 hour release tablet Take 2 Tablets (1,000 mg) by mouth two times a day. 07/11/2023 Active metoprolol succinate (TOPROL XL) 50 MG 24 hour release tablet Take 1 Tablet (50 mg) by mouth daily. Active nystatin-triamcinolone (MYCOLOG-II) 055050-2.1 UNIT/GM-% cream Apply topically daily. 07/30/2023 Active ondansetron (ZOFRAN-ODT) 8 MG disintegrating tablet Take 1 Tablet (8 mg) by mouth every 8 hours. 04/03/2023 Active Phentermine HCl (ADIPEX-P) 37.5 MG tablet Take 1 Tablet (37.5 mg) by mouth every morning. 07/14/2023 Active propranolol (INDERAL) 10 MG tablet Take 1 Tablet (10 mg) by mouth every 8 hours. 08/04/2023 Active rosuvastatin (CRESTOR) 20 MG tablet Take 1 Tablet (20 mg) by mouth daily at bedtime. 07/30/2023 Active Active Problems Problem Noted Date Diagnosed Date Anxiety state 04/04/2009 Overview (07/09/2017): Anxiety NOS Depressive disorder 04/04/2009 Overview (07/09/2017): Depression NOS Bipolar I disorder 04/04/2009 Overview (07/09/2017): Bipolar I Dis NOS Osteoarthritis of multiple joints 04/04/2009 Overview (07/09/2017): DJD Multiple Sites Esophageal reflux 04/04/2009 Overview (07/09/2017): Gastroesophageal Reflux Disease Obesity 04/04/2009 Lumbago 04/04/2009 Overview (07/09/2017): Pain Low Back Osteoarthritis of spine 04/04/2009 Overview (07/09/2017): DJD Spine Pain in joint, multiple sites 04/04/2009 Overview (07/09/2017): Pain Joints Multiple Encounters Date Type Department Care Team Description 04/28/2024 Notes/Orders [facility] [address] [place] [address] Gonzalez Lau MD Routine medical exam from Last 3 Months Immunizations Name Administration Dates Next Due Flu Vac (3+ yrs) 10/24/2008,10/22/2006 HepB Adult (Engerix-B, 20+ y rs, 3 dose series) 07/04/2020,11/20/2015,03/16/2003 HepB, Unspecified Formulation 11/20/2015, 003 Influenza (Fluad) 09/02/2012,08/20/2010 Influenza IIV4 (Quadrivalent ) 0.5mL (24667) 09/09/2022,10/18/2021,08/29/2020,2018,10/20/2018,09/16/2017,09/24/2016,1 11/17/2014,08/03/2014,09/02/2012, 010,10/24/2008,10/22/2006 Influenza, Unspecified Formulation 09/16,09/24/2016,09/17/2015,2013 MMR 04/11/2011 PPSV23 (Pneumovax) 09/02/2012 Pfizer Monovalent 12+ Purple Top 022,08/28/2021,02/26/2021,2020 Tdap 10/18/2021,04/11/2011 Zoster RZV (Shingrix) 08/28/2021,05/23/2021 Family History Medical History Relation Name Comments Diabetes Maternal Grandmother eye iss ues Amblyopia/Strabismus Negative Family History Blindness Negative Family History Cataract Negative Family History Glaucoma Negative Family History Macular Degeneration Negative Family History Retinal Detachment Negative Family History Relation Name Status Comments Maternal Grandmother Social History Tobacco Use Types Packs/Day Years Used Date Smoking Tobacco: Never Tobacco Cessation:Counseling Given: Not Answered Sex and Gender Information Value Date Recorded Sex Assigned at Not on file Gender Identity Not on file Sexual Orientation Not on file Last Filed Vital Signs Vital Sign Reading Time Taken Comments Blood Pressure 118/70 04/04/2009 9:19 AM CDT Pulse 80 04/04/2009 9:19 AM CDT Temperature - - Respiratory Rate 18 04/04/2009 9:19 AM CDT Oxygen Saturation - - Inhaled Oxygen Concentration - - Weight 105.7 kg (232 lb 15. 7 oz) 04/04/2009 9:19 AM CDT C: 105.7kg Height 162.6 cm (5' 4) 04/04/2009 9:19 AM CDT C: 162.6cm Body Mass Index 39.99 04/04/2009 9:19 AM CDT Plan of Treatment Health Maintenance Due Date Last Done Comments Cervical Cancer Screening Due 1959 Colon Cancer Screening Plan Due 1959 Diabetes: Creatinine 1959 Diabetes: Foot Exam 1959 Diabetes: HGBA1C 1959 Diabetes: Lipid Panel 1959 Diabetes: Urine Microalbumin 1959 Hep C Screening (Preventive Services) 1960 Medicare Annual Wellness Visit 1960 Pneumococcal 65+ Yrs (2 - PCV) 09/02/2013 09/02/2012 Mammogram 05/06/2023 05/06/2022, 02/2021, 04/07/2020 COVID-19 Vaccine ( season) 2023 03/06/2022, 08/28/2021, 02/26/2021, Additional history exists Lung Cancer Screening 01/16/2024 01/15/2023 , 07/16/2022, 07/05/2021, Additional history exists Influenza (#1) 2024 09/09/2022, 12/2020, 08/29/2020, Additional history exists Diabetes: Eye Exam 08/05/2024 08/05/2023, 0 08/05/2023, 07/09/2022, Additional history exists DTaP/Tdap/Td (3 - Tdap) 10/18/2031 10/18/2021, 04/11 HepB Completed 07/04/2020, 02/2016, 11/20/2015, Additional history exists Zoster/Shingles Completed 08/28/2021, 05/23/2021 HepA Aged Out No longer eligi ble based on patient's age to complete this topic Hib Aged Out No longer eligi ble based on patient's age to complete this topic IPV (Polio) Aged Out No longer eligi ble based on patient's age to complete this topic MCV4 Aged Out No longer eligi ble based on patient's age to complete this topic Care Teams Plumbing Technician Relationship Specialty Start Date End Date Needs Pcp, Favian BECKER [place], [place] [id number] PCP - General 07/04/22
--- OUTSIDE RECORDS SUMMARY | 2024-07-17 23:22 | XMS_ITS | Encounter Summary ---
Author Organization [facility] Address [address] [place] [address] Care Team Providers Care Health Evaluator Name Role Phone Needs Pcp, Assignment Primary Care Provider [phone] Encounter Details Date Type Department Care Team (Late st Contact Info) Description 04/28/2024 Notes/Orders [facility] [address] [facility] [place] [address] Gonzalez Lau MD [address] [place] [id number] Routine medical exam Social History Tobacco Use Types Packs/Day Years Used Date Smoking Tobacco: Never Sex and Gender Information Value Date Recorded Sex Assigned at Not on file Gender Identity Not on file Sexual Orientation Not on file documented as of this encounter Plan of Treatment Scheduled Orders Name Type Priority Associated Diagnoses Orde r Schedule DNA Analysis Discrete Sequence Variation Panel (Blood) (Initial) Lab Routine Routine medical exam Expected: 04/28/2024 (Approximate), Expires: 10/28/2024 documented as of this encounter Visit Diagnoses Diagnosis Routine medical exam Routine general medical examination at a health care facility documented in this encounter Care Teams Health Evaluator Relationship Specialty Start Date End Date Needs Pcp, Favian BECKER [place], [place] [id number] PCP - General 07/04/22 documented as of this encounter
--- OUTSIDE RECORDS SUMMARY | 2024-07-17 23:22 | XMS_ITS | Clinical Summary ---
Author Organization [place] Address [address] [facility] [place] [address] Care Team Providers Care Police Lieutenant Name Role Phone Yon Meyer MD Primary Care Provider [phone] Allergies Active Allergy Reactions Criticality Noted Date Comments Guaifed Difficulty breathing 09/05/2009 Hydrocodone-Acetaminophen Nausea and Vomiting 0 12/26/2013 Medications Medication Sig Dispensed Refills Start Date End Date Status NAPROXEN 500 MG OR TABSIndications:Fibro myalgia 1 TABLET TWICE DAILY 60 5 09/05/2009 Active LISINOPRIL-HYDROCHLOR OTHIAZIDE 10-12.5 MG OR TABSIndications:HTN (hypertension) 1 TABLET DAILY 90 Tab 0 12/29/2009 Active DULoxetine HCl (CYMBALTA PO) Active LORazepam (ATIVAN PO) Act ella METFORMIN HCL PO Active estradiol (ESTRACE) 1 MG tablet Take 1 mg by mouth daily Active VITAMIN D, CHOLECALCIFEROL, PO Take by mouth daily Active diazepam (VALIUM) 2 MG tablet Take 1 tablet (2 mg) by mouth every 8 hours as needed (pain) 15 tablet 0 12/26/2013 Active Active Problems Problem Noted Date Diagnosed Date Lung nodules 07/18/2022 Overview: Currently managed with follow up imaging by [facility] Results Team. CARDIOVASCULAR SCREENING; LDL GOAL LESS THAN 130 09/16/2010 Adenomatous polyp of colon 12/13/2009 Overview: colonoscopy due Nov 2012 Intermittent asthma 12/01/2009 Fibromyalgia 09/05/2009 Insomnia 09/05/2009 DDD (degenerative disc disease), cervical 2008 DDD (degenerative disc disease), lumbar 09/05/20 09 Obesity 09/05/2009 Moderate recurrent major depression 09/05/2009 Generalized anxiety disorder 09/05/2009 Overview: Diagnosis updated by automated process. Provider to review and confirm. HTN (hypertension) 09/05/2009 GERD (gastroesophageal reflux disease) 9 Tobacco abuse 09/05/2009 Type 2 diabetes mellitus without complications Overview: pre-diabetes Vitamin D deficiency Neuromuscular disorder Overview: muscle myopathy's Encounters Date Type Department Care Team Description 05/31/2024 2:16 PM CDT - 05/31/2024 11:59 PM CDT Hospital Encounter [facility] [address] [place] [id number] Dasha Goss MD Scoliosis Discharge Disposition: Home or Self Care 05/31/2024 1:08 PM CDT - 05/31/2024 2:15 PM CDT Hospital Encounter [facility] [address] [place] [id number] Dasha Goss MD Other cervical disc displacement, unspecified cervical region; Radiculopathy, site unspecified; Scoliosis, unspecified Discharge Disposition: Home or Self Care 05/31/2024 Travel from Last 3 Months Family History Medical History Relation Comments Cancer Father throat and mouth Psychotic Disorder Father Alcoholism Diabetes Maternal Grandmother Cancer Mother lung Hypertension Mother Alcohol/Drug Paternal Grandfather Cerebrovascular Disease Paternal Grandmother Obesity Sister 1 Hypertension Sister 2 Relation Status Comments Father Maternal Grandfather Maternal Grandmother Mother Paternal Grandfather Paternal Grandmother Sister 1 Sister 2 Social History Tobacco Use Types Packs/Day Years Used Date Smoking Tobacco: Every Day Cigarettes Alcohol Use Standard Drinks/Week Comments Yes 0 (1 standard drink = 0.6 oz pur e alcohol) Adolescent Education Answer Date Record ed Getting School Help Needed Not on file 08/09 Sex and Gender Information Value Date Recorded Sex Assigned at Female 06/09/2024 4:05 PM CDT Gender Identity Female 06/09/2024 4:05 PM CDT Sexual Orientation Straight 06/09/2024 4: 05 PM CDT Last Filed Vital Signs Vital Sign Reading Time Taken Comments Blood Pressure 129/64 12/26/2013 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 TRUCK 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 Pulse 88 02/02/2010 7:13 PM CDT Temperature 37.1 ??C (98.8 ??F) 12/26/2013 3:21 PM CS T Respiratory Rate 16 12/26/2013 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 TRUCK DRIVER Oxygen Saturation 93% 12/26/2013 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 TRUCK DRIVER Inhaled Oxygen Concentration - - Weight 99.8 kg (220 lb) 12/26/2013 3:21 PM TOWER TRUCK DRIVER Height 160 cm (5' 3) 12/26/2013 3:21 PM TOWER TRUCK DRIVER Body Mass Index 38.97 12/26/2013 3:21 PM TOWER TRUCK DRIVER Plan of Treatment Health Maintenance Due Date Last Done Comments A1C 1959 ADVANCE CARE PLANNING 1959 ANNUAL REVIEW OF HM ORDERS 1959 ASTHMA CONTROL TEST 1959 CT COLONOGRAPHY 1959 DEPRESSION ACTION PLAN 1959 DIABETIC FOOT EXAM 1959 EYE EXAM 1959 FIT 1959 FLEX SIG 1959 LIPID 1959 MICROALBUMIN 1959 PHQ-9 1959 sDNA (Cologuard) 1959 HIV SCREENING 1974 DEXA 1977 HEPATITIS C SCREENING 1977 ASTHMA ACTION PLAN 12/01/2010 12/01/2009 Pneumococcal Vaccine: 65+ Years (2 of 2 - PCV) 09/02/2013 09/02/2012 BMP 12/26/2014 12/26/2013 RSV VACCINE (1 - 1-dose 60+ series) 2019 COVID-19 Vaccine ( - season) 2024 09/10/2023, 10/25/2022, 03/06/2022, Additional history exists FALL RISK ASSESSMENT 2024 MEDICARE ANNUAL WELLNESS VISIT 2024 06/28/2021 INFLUENZA VACCINE (#1) 2024 3, 09/09/2022, 10/18/2021, Additional history exists LUNG CANCER SCREENING 08/29/2024 08/29/2023 , 01/15/2023, 07/16/2022, Additional history exists MAMMO SCREENING 08/29/2025 08/29/2023, 04/18, 05/06/2022, Additional history exists COLONOSCOPY 08/08/2026 08/08/2023, 06/2023, 07/25/2023, Additional history exists COLORECTAL CANCER SCREENING 08/08/2026 DTAP/TDAP/TD IMMUNIZATION (3 - Td or Tdap) 10/18/2031 10/18/2021, 04/11/2011 ZOSTER IMMUNIZATION Completed 08/28/2021, HPV IMMUNIZATION Aged Out No longer e ligible based on patient's age to complete this topic MENINGITIS IMMUNIZATION Aged Out No l onger eligible based on patient's age to complete this topic RSV MONOCLONAL ANTIBODY Aged Out No l onger eligible based on patient's age to complete this topic Procedures Procedure Name Priority Date/Time Associated Diagnosis Comments XR SPINE COMPLETE SCOLIOSIS 2 VIEWS Routine 05/31/2024 2:36 PM CDT Scoliosis MR CERVICAL SPINE W/O CONTRAST Routine 05/31/2024 1:58 PM CDT Other cervical disc displacement, unspecified cervical region Radiculopathy, site unspecified Scoliosis, unspecified MA SCREENING BILATERAL W/ SUMIT Routine 08/29/2023 2:01 PM CDT Visit for screening mammogram CT CHEST LUNG CANCER SCREEN LOW DOSE WITHOUT Routine 08/29/2023 1:11 PM CDT History of tobacco use COLONOSCOPY - HIM SCAN 08/08/2023 12:00 AM CDT BASIC METABOLIC PANEL STAT 12/26/2013 3:22 PM TOWER TRUCK DRIVER ASTHMA ACTION PLAN Routine 12/01/2009 2: 51 PM TOWER TRUCK DRIVER INTERMITTENT ASTHMA from Last 3 Months or Most Recently Relevant to Health Maintenance Results * XR Spine Complete Scoliosis 2 Views (05/31/2024 2:36 PM CDT) Anatomical Region Laterality Modality Spine Computed Radiogr aphy Impressions 05/31/2024 3:11 PM CDT IMPRESSION: Minimal dextrocurvature of the cervical spine. Lower thoracic levocurvature measures 9 degrees. Lumbar dextroscoliosis measures 14 degrees. Coronal balance is within normal limits. Mild straightening of the normal cervical lordosis. Normal thoracic kyphosis. Normal lumbar lordosis with trace grade 1 anterolisthesis of L4 on L5. Sagittal balance is within normal limits. SHAHID AMADOR MD SYSTEM ID: ??[id number] Narrative 05/31/2024 3:11 PM CDT XR SPINE COMPLETE SCOLIOSIS 2 VIEWS 05/31/2024 2:36 PM HISTORY: Scoliosis COMPARISON: None. Procedure Note Shahid Amador MD - 05/31/2024 XR SPINE COMPLETE SCOLIOSIS 2 VIEWS 05/31/2024 2:36 PM HISTORY: Scoliosis COMPARISON: None. IMPRESSION: Minimal dextrocurvature of the cervical spine. Lower thoracic levocurvature measures 9 degrees. Lumbar dextroscoliosis measures 14 degrees. Coronal balance is within normal limits. Mild straightening of the normal cervical lordosis. Normal thoracic kyphosis. Normal lumbar lordosis with trace grade 1 anterolisthesis of L4 on L5. Sagittal balance is within normal limits. SHAHID AMADOR MD SYSTEM ID: [id number] Dasha Goss MD IMG DIAGNOSTIC IM AGING ORDERABLES * MR Cervical Spine w/o Contrast (05/31/2024 1:58 PM CDT) Anatomical Region Laterality Modality Spine, SUBRAD MR NEURO, UMP MR SPINE, RAD MR Magnetic Resonance Impressions 06/01/2024 10:11 AM CDT IMPRESSION: 1. Diffuse degenerative change of the cervical spine as detailed above. 2. No high-grade spinal canal stenosis of the cervical spine. 3. Moderate to severe degenerative neural foraminal stenosis on the left at C2-C3, bilaterally at C5-C6 and bilaterally at C6-C7. SREEDHAR ENGLISH MD Narrative 06/01/2024 10:11 AM CDT MRI OF THE CERVICAL SPINE WITHOUT CONTRAST May 31, 2024 1:58 PM HISTORY: Other cervical disc displacement, unspecified cervical region; Radiculopathy, site unspecified; Scoliosis, unspecified TECHNIQUE: Multiplanar, multisequence MRI images of the cervical spine were acquired without intravenous contrast. COMPARISON: None. FINDINGS: There is normal alignment of the cervical vertebrae. Vertebral body heights of the cervical spine are normal. Marrow signal throughout the cervical vertebrae is within normal limits. There is no evidence for fracture or pathologic bony lesion of the cervical spine. There is loss of disc height, disc desiccation and posterior disc bulging to varying degrees at all levels of the cervical spine with exception of the normal appearing C7-T1 disc. The cervical spinal cord is normal in contour. There is no abnormal signal in the cervical spinal cord. There is no evidence for intrathecal abnormality. Level by level: C2-C3: There is facet arthropathy bilaterally, uncinate hypertrophy bilaterally and a posterior broad-based disc-osteophyte complex with a superimposed tiny posterior central disc herniation (protrusion). No spinal canal stenosis. Moderate left foraminal stenosis. No right foraminal stenosis. C3-C4: There is facet arthropathy bilaterally and a posterior broad-based disc-osteophyte complex with a superimposed tiny posterior central disc herniation (protrusion). No spinal canal stenosis. Mild left foraminal narrowing. No right foraminal stenosis. C4-C5: There is facet arthropathy bilaterally, uncinate hypertrophy on the right and a posterior broad-based disc-osteophyte complex with a superimposed small posterior broad-based disc herniation (protrusion). No spinal canal stenosis. No left foraminal stenosis. Mild right foraminal narrowing. C5-C6: There is facet arthropathy bilaterally, uncinate hypertrophy bilaterally and a posterior broad-based disc-osteophyte complex. Minimal spinal canal narrowing. Severe right foraminal stenosis. Moderate left foraminal stenosis. C6-C7: There is facet arthropathy bilaterally, uncinate hypertrophy bilaterally and a posterior broad-based disc-osteophyte complex. No spinal canal stenosis. Moderate left foraminal stenosis. Moderate right foraminal stenosis. C7-T1: Normal disc height and contour. Moderate facet arthropathy on the left. No spinal canal stenosis. No foraminal stenosis on either side. Procedure Note Sreedhar English MD - 06/01/2024 MRI OF THE CERVICAL SPINE WITHOUT CONTRAST May 31, 2024 1:58 PM HISTORY: Other cervical disc displacement, unspecified cervical region; Radiculopathy, site unspecified; Scoliosis, unspecified TECHNIQUE: Multiplanar, multisequence MRI images of the cervical spine were acquired without intravenous contrast. COMPARISON: None. FINDINGS: There is normal alignment of the cervical vertebrae. Vertebral body heights of the cervical spine are normal. Marrow signal throughout the cervical vertebrae is within normal limits. There is no evidence for fracture or pathologic bony lesion of the cervical spine. There is loss of disc height, disc desiccation and posterior disc bulging to varying degrees at all levels of the cervical spine with exception of the normal appearing C7-T1 disc. The cervical spinal cord is normal in contour. There is no abnormal signal in the cervical spinal cord. There is no evidence for intrathecal abnormality. Level by level: C2-C3: There is facet arthropathy bilaterally, uncinate hypertrophy bilaterally and a posterior broad-based disc-osteophyte complex with a superimposed tiny posterior central disc herniation (protrusion). No spinal canal stenosis. Moderate left foraminal stenosis. No right foraminal stenosis. C3-C4: There is facet arthropathy bilaterally and a posterior broad-based disc-osteophyte complex with a superimposed tiny posterior central disc herniation (protrusion). No spinal canal stenosis. Mild left foraminal narrowing. No right foraminal stenosis. C4-C5: There is facet arthropathy bilaterally, uncinate hypertrophy on the right and a posterior broad-based disc-osteophyte complex with a superimposed small posterior broad-based disc herniation (protrusion). No spinal canal stenosis. No left foraminal stenosis. Mild right foraminal narrowing. C5-C6: There is facet arthropathy bilaterally, uncinate hypertrophy bilaterally and a posterior broad-based disc-osteophyte complex. Minimal spinal canal narrowing. Severe right foraminal stenosis. Moderate left foraminal stenosis. C6-C7: There is facet arthropathy bilaterally, uncinate hypertrophy bilaterally and a posterior broad-based disc-osteophyte complex. No spinal canal stenosis. Moderate left foraminal stenosis. Moderate right foraminal stenosis. C7-T1: Normal disc height and contour. Moderate facet arthropathy on the left. No spinal canal stenosis. No foraminal stenosis on either side. IMPRESSION: 1. Diffuse degenerative change of the cervical spine as detailed above. 2. No high-grade spinal canal stenosis of the cervical spine. 3. Moderate to severe degenerative neural foraminal stenosis on the left at C2-C3, bilaterally at C5-C6 and bilaterally at C6-C7. SREEDHAR ENGLISH MD Dasha Goss MD [facility] MRI ORDERABLE S * MA Screen Bilateral w/Sumit (08/29/2023 2:01 PM CDT) Anatomical Region Laterality Modality Breast Bilateral Mammography Impressions 09/19/2023 8:58 AM CDT IMPRESSION: BI-RADS CATEGORY: 0 - Incomplete - Need Additional Imaging RECOMMENDED FOLLOW-UP: Ultrasound of the right breast. The results and recommendations of this examination will be communicated to the patient and the imaging center will attempt to contact the patient within 2-3 business days to schedule follow-up imaging. Khadijah Mcfadden MD Narrative 09/19/2023 8:58 AM CDT BILATERAL FULL FIELD DIGITAL SCREENING MAMMOGRAM WITH TOMOSYNTHESIS Performed on: 08/29/23 No comparisons were made when reading this study. Technique: ??This study was evaluated with the assistance of Computer-Aided Detection. ??Breast Tomosynthesis was used in interpretation. Findings: The breasts are heterogeneously dense, which may obscure small masses. There is a possible mass in the right breast at the 9 o'clock position, middle depth. The remainder of the breast tissue is unremarkable. There is no suspicious finding of the left breast. Dasha Goss MD G MAMMOGRAPHY O RDERABLES * CT Chest Lung Cancer Scrn Low Dose wo (08/29/2023 1:11 PM CDT) Anatomical Region Laterality Modality Chest, SUBRAD CT BODY, UMP CT CHEST, RAD CT Computed Tomography Impressions 08/29/2023 4:01 PM CDT IMPRESSION: 1. ACR Assessment Category: Lung-RADS Category 2. Benign appearance or behavior. Recommendation: ??continue annual screening. 2. Significant Incidental Finding(s): ??Category S: No. Download the LungRADS Assessment Categories table at this site: http://www.acr.org/Quality-Safety/Resources/LungRADS MAT EL MD Narrative 08/29/2023 4:[address] CHEST LUNG CANCER SCREEN LOW DOSE WITHOUT CONTRAST 08/29/2023 1:11 PM HISTORY: History of tobacco use. TECHNIQUE: Scans obtained from the apices through the diaphragm without IV contrast. Low dose CT chest technique was utilized. Radiation dose for this scan was reduced using automated exposure control, adjustment of the mA and/or kV according to patient size, or iterative reconstruction technique. COMPARISON: ??January 15, 2023 FINDINGS: Lungs: A few scattered pulmonary nodules are stable. No new nodules. No infiltrates. Additional findings: ??No pleural or pericardial effusion. Normal caliber thoracic aorta. There are minimal coronary vascular calcifications consistent with coronary artery disease.Normal heart size. Adrenal glands unremarkable. Remaining visualized upper abdomen unremarkable. No frankly destructive bony lesions. Dasha Goss MD IMG CT ORDERABLES * COLONOSCOPY - HIM SCAN (08/08/2023 12:00 AM CDT) 08/08/2023 Provider Outside PROCEDURES * Basic metabolic panel (BMP) (12/26/2013 3:22 PM TOWER TRUCK DRIVER) Sodium 140 133 - 144 mmol/L [facility] Potassium 3.8 3.4 - 5.3 mmol/L [facility] Chloride 101 94 - 109 mmol/L [facility] Carbon Dioxide 31 20 - 32 mmol/L [facility] Anion Gap 9 6 - 17 mmol/L [facility] Glucose 86 60 - 99 mg/dL [facility] Urea Nitrogen 15 7 - 30 mg/dL [facility] Creatinine 0.87 0.52 - 1.04 mg/dL [facility] GFR Estimate 68 >60 mL/min/1.7 m2 [facility] GFR Estimate If Black 82 >60 mL/min/1.7 m2 [facility] Calcium 9.0 8.5 - 10.4 mg/dL [facility] Blood specimen (specimen) 12/26/2013 3:22 PM TOWER TRUCK DRIVER 12/26/2013 4:05 PM TOWER TRUCK DRIVER Rodney Smalls MD LAB - BLOOD ORDERABL ES [facility] from Last 3 Months or Most Recently Relevant to Health Maintenance Care Teams Police Lieutenant Relationship Specialty Start Date End Date Yon Meyer MD [facility] [address] [place] [address] PCP - General Family Practice 04/13/19
--- OUTSIDE RECORDS SUMMARY | 2024-07-17 23:23 | XMS_ITS | Encounter Summary ---
Author Organization [facility] Address [address] [facility] [place] [address] Care Team Providers Care Rehabilitation Team Lead Name Role Phone Yon Meyer MD Primary Care Provider [phone] Reason for Referral * Diagnostic Imaging MRI (Routine) - Closed Specialty Diagnoses / Procedures Referred By Micah mtz Referred To Contact Radiology. Diagnoses Other cervical disc displacement, unspecified cervical region Radiculopathy, site unspecified Scoliosis, unspecified Procedures MR Cervical Spine w/o Contrast Dasha Goss MD [address] [address] Referral ID Status Reason Start Date Expiration Date Visits Re quested Visits Authorized [id number] Closed 05/06/2024 05/06/2025 1 1 Reason for Visit * Diagnostic Imaging MRI (Routine) - Closed Specialty Diagnoses / Procedures Referred By Contac t Referred To Contact Radiology. Diagnoses Other cervical disc displacement, unspecified cervical region Radiculopathy, site unspecified Scoliosis, unspecified Procedures MR Cervical Spine w/o Contrast Dasha Goss MD [address] [address] Referral ID Status Reason Start Date Expiration Date Visits Re quested Visits Authorized [id number] Closed 05/06/2024 05/06/2025 1 1 Encounter Details Date Type Department Care Team (Latest Contact Info) Description 05/31/2024 1:08 PM CDT - 05/31/2024 2:15 PM CDT Hospital Encounter [facility] Imaging [address] [place] [address] Dasha Goss MD [facility] [address] [address] Other cervical disc displacement, unspecified cervical region; Radiculopathy, site unspecified; Scoliosis, unspecified Discharge Disposition: Home or Self Care Social History Tobacco Use Types Packs/Day Years [...] Orientation Straight 06/09/2024 4: 05 PM CDT documented as of this encounter Medications at Time of Discharge Medication Sig Dispensed Refills Start Date End Date diazepam (VALIUM) 2 MG tablet Take 1 tablet (2 mg) by mouth every 8 hours as needed (pain) 15 tablet 0 12/26/2013 DULoxetine HCl (CYMBALTA PO) estradiol (ESTRACE) 1 MG tablet Take 1 mg by mouth daily LISINOPRIL-HYDROCHLOROTHI AZIDE 10-12.5 MG OR TABSIndications:HTN (hypertension) 1 TABLET DAILY 90 Tab 0 12/29/2009 LORazepam (ATIVAN PO) METFORMIN HCL PO NAPROXEN 500 MG OR TABSIndications:Fibromyal mayur 1 TABLET TWICE DAILY 60 5 09/05/2009 VITAMIN D, CHOLECALCIFEROL, PO Take by mouth daily documented as of this encounter Plan of Treatment Not on file documented as of this encounter Procedures Procedure Name Priority Date/Time Associated Diagnosis Comments MR CERVICAL SPINE W/O CONTRAST Routine 05/31/2024 1:58 PM CDT Other cervical disc displacement, unspecified cervical region Radiculopathy, site unspecified Scoliosis, unspecified documented in this encounter Results * MR Cervical Spine w/o Contrast (05/31/2024 [...] C6-C7. SREEDHAR ENGLISH MD Dasha Goss MD IMG MRI ORDERABLE S documented in this encounter Visit Diagnoses Diagnosis Other cervical disc displacement, unspecified cervical region Radiculopathy, site unspecified Scoliosis, unspecified documented in this encounter Care Teams Rehabilitation Team Lead Relationship Specialty Start Date End Date Yon Meyer MD [facility] [address] [place] [address] PCP - General Family Practice 04/13/19 documented as of this encounter
--- OUTSIDE RECORDS SUMMARY | 2024-07-17 23:23 | XMS_ITS | Clinical Summary ---
Author Organization [facility] Address [place], [place] [address] Care Team Providers Care County Commissioner Name Role Phone Sterling Gayle MD Unavailable Unavailable Sudheer Noonan MD Unavailable Unavailable Shmuel Mcknight MD Unavailable [phone] Nadir Lewis DPM Unavailable [phone] Yon Meyer MD Primary Care Provider Unavail able Allergies Active Allergy Reactions Criticality Noted Date Comments Guaifenesin-Sodium Citrate Anaphylaxis High 10/01/20 10 Guaifenesin 09/23/2008 Pt throat got swelling Naproxen *Unknown 09/30/2010 Pt. States throat closes May have been Norflex not Naproxen Can take Aleve without problems Simvastatin Myalgia 01/14/2014 Hydrocodone-Acetaminophen Vomiting 12/13/2011 Medications Medication Sig Dispensed Refills Start Date End Date Status loratadine (CLARITIN) 10 mg tablet Take 1 tablet by mouth once daily. 90 tablet prn 03/21/2010 Active LORazepam (ATIVAN) 1 mg tablet Take 1 tablet by mouth 3 times daily if needed. Dr. Sudheer Noonan (psychiatrist) prescribing 90 tablet 0 09/02/2012 Active DULoxetine (CYMBALTA) 60 mg capsule Take 1 capsule by mouth once daily. Prescribed by Dr. Sudheer Nonoan. 0 09/02/2012 Active Lysine (L-LYSINE HCL) 500 mg cap Take 1 capsule by mouth once daily. 0 01/14/2014 Active Cholecalciferol, Vitamin D3, (VITAMIN D-3) 5,000 unit tab Take by mouth once daily. 0 08/03/2014 Active pravastatin (PRAVACHOL) 20 mg tabletIndications:Hy perlipidemia TAKE ONE TABLET BY MOUTH EVERY NIGHT AT BEDTIME 90 tablet 2 09/12/2015 Active estradiol (ESTRACE) 0.5 mg tabletIndications:Me nopause TAKE 1 TABLET BY MOUTH DAILY 90 tablet 3 11/21/2015 Active metFORMIN (GLUCOPHAGE) 1,000 mg tabletIndications:Pr ediabetes Take 1 tablet by mouth once daily with a meal. 90 tablet 0 11/20/2015 Active ALEVE 220 mg tablet Take 1 tablet by mouth 2 times daily with meals. 0 11/20/2015 Active albuterol HFA (PRO-AIR,VENTOLIN,AZ OVENTIL) 90 mcg/actuation inhalerIndications:M ild persistent asthma without complication Inhale 2 Puffs by mouth every 6 hours if needed for Shortness Of Breath or Wheezing. 1 Inhaler 0 11/20/2015 Active fluticasone (FLOVENT HFA) 110 mcg/Actuation inhalerIndications:M ild persistent asthma without complication Inhale 2 Puffs by mouth 2 times daily. Takes this PRN 1 Inhaler 6 11/20/2015 Active cyclobenzaprine (FLEXERIL) 10 mg tabletIndications:De generation of lumbar or lumbosacral intervertebral disc Take 1 tablet by mouth at bedtime if needed for Muscle Spasm. 90 tablet 1 01/23/2016 Active meloxicam 15 mg tabletIndications:Fi bromyalgia Take 1 tablet by mouth once daily. 30 tablet 2 01/23/2016 Active naproxen (NAPROSYN) 500 mg tablet Take by mouth. 09/05/2009 Active albuterol-ipratropiu m (DUONEB) (2.5-0.5 mg) in 3 mL NEBULIZATION solutionIndications: Bronchitis,Asthma exacerbation Inhale 3 mL via a nebulizer 4 times daily. 1 box 0 08/17/2016 Active levalbuterol (XOPENEX) 0.63 mg/3 mL nebulizationIndicati ons:Moderate persistent asthma without complication Inhale 3 mL via a nebulizer every 6 hours. 1 box 11/15/2016 Active ranitidine (ZANTAC) 150 mg tabletIndications:Ga stroesophageal reflux disease without esophagitis TAKE 1 TABLET BY MOUTH TWICE DAILY 180 tablet 2 02/12/2017 Active lisinopril-hydrochlo rothiazide, 20-25 mg, (PRINZIDE, ZESTORETIC) 20-25 mg per tabletIndications:HT N (hypertension) TAKE 1 TABLET BY MOUTH EVERY DAY 30 tablet 08/07/2017 Active valACYclovir (VALTREX) 1 gram tabletIndications:H/ O cold sores TAKE 2 TABLETS BY MOUTH TWICE DAILY. START AT ONSET OF COLD SORE FOR 1 DAY 8 tablet 01/05/2018 Active Active Problems Problem Noted Date Diagnosed Date H/O cold sores 10/17/2016 BMI 40.0-44.9, adult 11/20/2015 Shortness of breath 12/15/2014 Radiculopathy affecting upper extremity 12/11/19 13 Moderate persistent asthma 09/30/2012 Overview: Spirometry 09/30/14 FEV1 89%. Based on symptoms, started QVAR 40mg 2 puffs twice daily. Asthma Action Plan reviewed. Presbyopia 06/02/2012 After-cataract, obscuring vision 06/02/2012 Cortical senile cataract 06/02/2012 Old retinal detachment, partial 06/02/2012 Arthritis, degenerative 03/19/2011 Cervical disc displacement 03/19/2011 Overview: Per old records Vitamin D deficiency 03/19/2011 Prediabetes 03/19/2011 Hypercholesteremia 04/26/2010 Overview: Labs 03/20/10 Encounters for other specifi ed administrative purpose(V68.89) 04/12/2010 Morbid obesity 03/21/2010 Overview: Did fasting labs- [facility]- [place] ([place])_they are prescribing phentermine Allergic rhinitis, cause unspecified 03/21/2010 Bone spur of acromioclavicular joint 03/21/2010 Overview: Left shoulder- Dr. Jared [facility] Pain in joint, ankle and foot 03/21/2010 Asthma, exercise induced 02/21/2010 Overview: Triggers: Exercise Laying down triggers this. Last Assessment & Plan: Asthma Action Plan done 08/26/11. Shamika Sandoval PA-C, 08/26/2011 4:35 PM Low back pain 06/07/2009 Pain in thoracic spine 06/07/2009 Muscular deconditioning 06/07/2009 Fibromyalgia 06/07/2009 Overview: richi neurological - tried lyrica EMG- nerve impingement found on left leg Ankle instability 05/22/2009 Overview: Right side- weakness, [facility]_ may need surgery to reinforce tendons Adjustment disorder with depressed mood 10/17/20 08 Overview: Doctor. Skip RAGLAND , for depression, pain and anxiety (at [facility]) [phone] Kaba in [place] as he specializes in chronic pain Discogenic syndrome, lumbar 09/23/2008 Overview: Disability from lumbar, cervical and psychology issues DoctorYuliya mark [phone] rehab Myalgia and myositis, unspecified 09/23/2008 Degeneration of lumbar or lumbosacral interverte bral disc 07/17/2008 Tobacco use disorder 07/17/2008 Overview: Less than 1 ppd Anxiety state, unspecified 04/22/2008 Unspecified essential hypertension 12/20/2007 Resolved Problems Problem Noted Date Diagnosed Date Resolved Date Abnormal blood sugar 03/21/2010 012 Overview: Just had it rechecked 03/26 and results not back yet Cervicalgia 12/20/2007 03/19/2011 Immunizations Name Administration Dates Next Due Hepatitis B (Adult) 11/20/2015,03/16/2003 Influenza, IIV3 (Age >=3 years) 09/02/2012,08/20 Influenza, IIV4 09/24/2016,09/17/2015,08/03/2014 MMR 04/11/2011 Pneumococcal Poly,23-Valent (Pneumovax) 09/02/20 12 Tdap 04/11/2011 Tuberculin (PPD) 04/11/2011 Family History Medical History Relation Name Comments Alcohol/Drug Father etoh Cancer Father mouth and throa t- smoked Cancer-breast Maternal Aunt 1 Cancer-breast Maternal Aunt 2 Other Maternal Grandfather black l [place] not sure if tb, not sure Diabetes Maternal Grandmother Heart Disease Maternal Grandmother Hypertension Maternal Grandmother Other Maternal Grandmother poss gl aucoma Cancer Mother lung- smoked & coal heat Cancer-breast Mother Hypertension Mother Thyroid Disease Mother hypothyroid Asthma Paternal Grandfather Unknown Paternal Grandfather Stroke Paternal Grandmother 65 yo a pprox. Hypertension Sister 1 Hyperlipidemia Sister 2 Cancer-ovarian No Family History Relation Name Status Comments Father Maternal Aunt 1 Alive Maternal Aunt 2 Maternal Grandfather Maternal Grandmother Mother Paternal Grandfather Paternal Grandmother Sister 1 Sister 2 Social History Tobacco Use Types Packs/Day Years Used Date Smoking Tobacco: Every Day Cigarettes 0.5 43 Smokeless Tobacco: Never Tobacco Cessation:Counseling Given: Yes Alcohol Use Standard Drinks/Week Comments Yes 2 (1 standard drink = 0.6 oz pur e alcohol) 2-3 drinks per week Sex and Gender Information Value Date Recorded Sex Assigned at Not on file Gender Identity Not on file Sexual Orientation Not on file Obstetrics History Para Term AB IAB SAB Ectopic Multiple Livin g Live Births 3 2 2 0 1 0 0 0 0 2 2 Date Outcome GA Total Labor Labor/2nd/3rd Weight Sex Type Anes PTL Brit A1 A5 Name Clin 1976 Term 40w 0d Living 1980 AB 1984 Term 40w 0d Living Last Filed Vital Signs Vital Sign Reading Time Taken Comments Blood Pressure 114/71 03/14/2017 4:26 PM CDT Pulse 85 03/14/2017 4:26 PM CDT Temperature 36.7 ??C (98.1 ??F) 03/14/2017 4:26 PM CD T Respiratory Rate 16 03/14/2017 4:26 PM CDT Oxygen Saturation 95% 03/14/2017 4:26 PM CDT Inhaled Oxygen Concentration - - Weight 109.8 kg (242 lb) 03/14/2017 4:26 PM CDT Height 157.5 cm (5' 2) 08/17/2016 10:42 AM CDT Body Mass Index 44.26 08/17/2016 10:42 AM CDT Plan of Treatment Health Maintenance Due Date Last Done Comments HIV for age 15-65 1974 Hepatitis C screening for ag e 18-79 1977 Zoster (shingles) series for age 50+ (1 of 2) 2009 Depression screening for age 12+ 01/22/2017 01/23/20 16 BMI (ht and wt on same day) for age 18+ 08/17/2017 08/17/2016, 06/11/2016, 01/23/2016 Colonoscopy through age 75 06/23/201806/23, 12/17/2010, 10/17/2010 (Postponed) Mammogram for age 45-75 01/16/2019 01/17/20 18, 12/09/2016, 11/29/2016, Additional history exists Tetanus booster 04/11/2021 04/11/2011, 11/2009 (Postponed) Lipids for age 45-75 06/11/2021 06/11/2016, 12/21/2015, 04/14/2015, Additional history exists COVID-19 vaccine series ( season) 2023 03/06/2022, 08/28/2021, 02/26/2021, Additional history exists DEXA/DXA scan for age 65+ 2024 Pneumococcal series for age 65+ (2 of 2 - PCV) 2024 09/02/2012 Influenza for age 65+ 07/18/2024 09/24/2016 , 09/17/2015, 08/03/2014, Additional history exists Tdap Completed 04/11/2011 Medical Devices Implanted Type Area Motorcycle Subassembly Repairer Device Identifier Shelf Expiration Date Model / Serial / Lot Sleeve Silcn 70 - [id number] Implanted:Qty: 1 on 10/01/2010 at [facility] Right: Eye [employer] 70# / / [id number] Bands Silcn 41smira - [id number] Implanted:Qty: 1 on 10/01/2010 at [facility] Right: Eye [employer] 41S# / / [id number] Procedures Procedure Name Priority Date/Time Associated Diagnosis Comments XR MAMMO BILAT SCREENING Routine 01/16/2018 11:30 AM KENO MANAGER Visit for screening mammogram LIPID PANEL W REFLEX MEASURED LDL Routine 06/11/2016 10:19 AM CDT Hypercholesteremia SCAN-COLONOSCOPY 06/23/2015 1:00 PM CDT from Last 3 Months or Most Recently Relevant to Health Maintenance Results * XR MAMMO BILAT SCREENING (01/16/2018 11:30 AM KENO MANAGER) Anatomical Region Laterality Modality BREASTS, Breast Left, Breast Right Bilateral Mammography Impressions 01/19/2018 9:24 AM KENO MANAGER ??There is no radiographic evidence for malignancy. ??Recommend annual mammograms. A lay language report of this examination will be provided to the patient. MAMMOGRAM ASSESSMENT: ??ACR 2 Benign Narrative 01/19/2018 9:24 AM KENO MANAGER XR MAMMO BILAT SCREENING [[id number]] CLINICAL HISTORY: ??This is an asymptomatic 57 y.o. patient. INDICATION FOR EXAM: Mammogram Screening. TECHNIQUE: CC & MLO views were obtained. ??This digital study was evaluated with the assistance of Computer-Aided Detection. COMPARISON FILMS: Yes 11/29/16 [facility] 11/27/15 [facility] FINDINGS: ??Mammographically, the breast tissue is heterogeneously dense, which could obscure detection of small masses. ??No suspicious masses or microcalcifications. ??Benign appearing mass(es) within both breasts. Yon Meyer MD MAMMO * (ABNORMAL) LIPID PANEL W REFLEX MEASURED LDL (06/11/2016 10:19 AM CDT) CHOLESTEROL,TOTAL 228(H) 100 - 199 mg/dL 06/11/2016 6:27 PM CDT [facility] TRIGLYCERIDES 188(H) <150 mg/dL 06/11/2016 6:27 PM CDT [facility] HDL CHOLESTEROL 34(L) >40 mg/dL 06/11/2016 6:27 PM CDT [facility] NON-HDL CHOLESTEROL 194(H) <145 mg/dl 06/11/2016 6:27 PM CDT [facility] CHOL/HDL RATIO 6.71(H) <4.50 06/11/2016 6:27 PM CDT [facility] LDL CHOLESTEROL 156(H) <=130 mg/dL 06/11/2016 6:27 PM CDT [facility] PATIENT STATUS FASTING 06/11/2016 6:27 PM CDT [facility] Blood BLOOD SPECIMEN / Unknown Venipuncture / Unknown 06/11/2016 10:19 AM CDT 06/11/2016 10:19 AM CDT Briana Frye MD CHEMISTRY [facility] [address] [place] [address], [place] * SCAN-COLONOSCOPY (06/23/2015 1:00 PM CDT) Narrative Transcriptions Aleah Randall MD - 06/23/2015 12:22 PM CDT [facility] [address], [address], [place] [address] Patient Name: Leigh Ferro Gender: Female Exam Date: 06/23/2015 Visit Number: [id number] Age: 54 Years Date of : 1960 Attending MD: Aleah Randall MD Medical Record#: [id number] ----- Procedure: Colonoscopy Indications: Diarrhea personal history of polyps Referring MD: Connor Ramos MD Primary MD: Connor Ramos MD Medications: Intra Procedure Medications: Received MAC sedation per anesthesia provider Complications: Procedure: An examination of the heart and lungs was performed and found to be withinacceptable limits. The patient was therefore deemed a reasonablecandidate for endoscopy and {cons_sedation: Unexpected Value} sedation. The risks and benefits of the procedure were explained to the patient.After obtaining informed consent, MAC sedation was administered peranesthesia provider and I passed the scope without difficulty via the rectum to the ileum. The appendiceal orificeand ic valve were identified. The scope was retroflexed during theexamination The quality of the prep was fair (Miralax/Gatorade/2 tabletsBisacodyl/Magnesium Citrate). This was a complete examination throughout the entire colon. Findings: Normal finding. Location - ileum. Random biopsies were taken throughout the colon to rule out microscopiccolitis. The entire colon was normal. Impression: Personal history of colonic polyps Diarrhea MD impression comments: Prep was not good enough to identify smallpolyps. Procedure: Upper GI endoscopy Indications: Abdominal Pain Diarrhea, rule out celiac sprue Provider: Aleah Randall MD Referring MD: Connor Ramos MD Primary MD: Connor Ramos MD Intra Procedure Medications: Received MAC sedation per anesthesia provider Complications: No immediate complications Procedure: An examination of the heart and lungs was performed within acceptablelimits. The patient was therefore deemed a reasonable candidate for{cons_sedation: Unexpected Value} sedation. The risks and benefits were explained to the patient, who appeared tounderstand. After obtaining informed consent, the scope was passed underdirect vision. Throughout the procedure the patient's blood pressure,pulse and oxygen saturations were monitored. The scope was introducedthrough the mouth and advanced to the second portion of duodenum. Findings: Esophagus: Normal esophagus. The z-line is 39 centimeters from the incisors. Stomach: Gastritis. Gastritis. Location - antrum. Description - mild - erythema.Biopsy taken at entire stomach. Duodenum: Celiac Sprue biopsies taken. Duodenal Polyp(s). Location: bulb. Quantity: 1. Size: 4 mm. Shape:sessile. Maneuver: biopsy. Instrument used: cold biopsy forceps. Removal: no removal. Celiac Sprue biopsies taken. Impression: Mild Gastritis, no evidence of ulcer Pathology Results: A: DUODENUM, BIOPSY: 1. Normal small bowel mucosa 2. No histologic evidence of celiac disease or other enteropathy B: DUODENAL POLYP, BIOPSY: 1. Nodular chronic peptic type duodenitis (see comment) 2. No morphologic evidence of celiac sprue or other enteropathy 3. No evidence of dysplasia or malignancy C: STOMACH, BIOPSY: 1. Gastric antral and body mucosae with no diagnostic abnormalities 2. No evidence of Helicobacter organisms D: COLON, RANDOM, BIOPSY: 1. Normal colonic mucosa 2. No evidence of microscopic, active or chronic colitis COMMENTS The duodenum shows reactive changes of the type typical of peptic injury(surface foveolar metaplasia, prominent intramucosal Jared's glands andincreased lamina propria B. mononuclear inflammation). This is notentirely specific for peptic injury; other etiologies such as NSAIDs mayalso be a consideration. MICROSCOPIC A: Performed B: Performed C: Performed D: Performed Electronically signed by: Adalid Sommer MD Plan Comments: _Electronically signed by: Aleah Randall MD 06/23/2015 Aleah Randall MD OTHER from Last 3 Months or Most Recently Relevant to Health Maintenance Advance Directives * Full Code (Latest Code Status on File) Date Activated Date Inactivated Comments 01/23/2012 6:07 AM 01/23/2012 11:32 AM * Full Code Date Activated Date Inactivated Comments 10/01/2010 9:55 AM 10/02/2010 2:26 AM Care Teams County Commissioner Relationship Specialty Start Date End Date Yon Meyer MD [address] [place] [id number] PCP - General Family Practice 01/21/18 Sterling Gayle MD Obstetrics and Gynecology 05/04/12 Sudheer Noonan MD Psychiatry 01/14/14 Shmuel Mcknight MD [address] [place] [address] Orthopedics Surgery - Orthopedics 11/20/15 Nadir Lewis, DPM [address] [place] [address] PODIATRY Podiatry 11/20/15
--- OUTSIDE RECORDS SUMMARY | 2024-07-17 23:23 | XMS_ITS | Encounter Summary ---
Author Organization [place] Address [address] [facility] [place] [address] Care Team Providers Care Telecommunications Cable Jointer Name Role Phone oYn Meyer MD Primary Care Provider [phone] Reason for Referral * Diagnostic Imaging XR (Routine) - Pending Review Specialty Diagnoses / Procedures Referred By Contac t Referred To Contact Radiology. Diagnoses Scoliosis Procedures XR Spine Complete Scoliosis 2 Views Dasha Goss MD [address] [address] Referral ID Status Reason Start Date Expiration Date V isits Requested Visits Authorized [id number] Pending Review 05/06/2024 05/06/2025 1 1 Reason for Visit * Diagnostic Imaging XR (Routine) - Pending Review Specialty Diagnoses / Procedures Referred By Contac t Referred To Contact Radiology. Diagnoses Scoliosis Procedures XR Spine Complete Scoliosis 2 Views Dasha Goss MD [address] [address] Referral ID Status Reason Start Date Expiration Date V isits Requested Visits Authorized [id number] Pending Review 05/06/2024 05/06/2025 1 1 Encounter Details Date Type Department Care Team (Latest Contact Info) Description 05/31/2024 2:16 PM CDT - 05/31/2024 11:59 PM CDT Hospital Encounter [facility] [address] [place] [phone] Dasha Goss MD [facility] [address] [address] Scoliosis Discharge Disposition: Home or Self Care Social [...] VIEWS Routine 05/31/2024 2:36 PM CDT Scoliosis documented in this encounter Results * XR Spine Complete Scoliosis 2 [...] L5. Sagittal balance is within normal limits. KEENA AMADOR MD SYSTEM ID: ??[id number] Narrative 05/31/2024 3:11 PM CDT XR SPINE COMPLETE SCOLIOSIS 2 VIEWS 05/31/2024 2:36 PM HISTORY: Scoliosis COMPARISON: None. Procedure Note Keena Amador MD - 05/31/2024 XR SPINE COMPLETE [...] L5. Sagittal balance is within normal limits. KEENA AMADOR MD SYSTEM ID: [id number] Dasha Goss MD IMG DIAGNOSTIC IM AGING ORDERABLES documented in this encounter Visit Diagnoses Diagnosis Scoliosis Scoliosis (and kyphoscoliosis), idiopathic documented in this encounter Care Teams Telecommunications Cable Jointer Relationship Specialty Start Date End Date Yon Meyer MD [facility] [address] [place] [address] PCP - General Family Practice 04/13/19 documented as of this encounter
--- OUTSIDE RECORDS SUMMARY | 2024-07-17 23:23 | XMS_ITS | Encounter Summary ---
Author Organization [place] Address [address] [facility] [address] Care Team Providers Care Funeral Planner Name Role Phone oYn Meyer MD Primary Care Provider [phone] Encounter Details Date Type Department Care Team (Latest Contact Info) Description 05/31/2024 Travel Social History Tobacco Use Types Packs/Day Years [...] PM CDT documented as of this encounter Plan of Treatment Not on file documented as of this encounter Visit Diagnoses Not on filedocumented in this encounter Care Teams Funeral Planner Relationship Specialty Start Date End Date Yon Meyer MD [facility] [address] [place] [address] PCP - General Family Practice 04/13/19 documented as of this encounter
--- OUTSIDE RECORDS SUMMARY | 2024-07-17 23:23 | XMS_ITS | Referral Summary ---
Author Organization [place] Address [facility] [place] [address] Care Team Providers Care Marine Resource Economist Name Role Phone Yon Meyer MD Primary Care Provider [phone] Encounters Date Type Department Care Team Description 05/31/2024 Travel 05/31/2024 2:16 PM CDT - 05/31/2024 11:59 PM CDT Hospital Encounter [facility] [address] [place] [address] Dasha Goss MD Scoliosis Discharge Disposition: Home or Self Care 05/31/2024 1:08 PM CDT - 05/31/2024 2:15 PM CDT Hospital Encounter [facility] [address] [place] [phone] Dasha Goss MD Other cervical disc displacement, unspecified cervical region; Radiculopathy, site unspecified; Scoliosis, unspecified Discharge Disposition: Home or Self Care from Last 3 Months Allergies Active Allergy Reactions Criticality Noted Date [...] Currently managed with follow up imaging by [employer] Results Team. CARDIOVASCULAR SCREENING; LDL GOAL LESS [...] D deficiency Neuromuscular disorder Overview: muscle myopathy's Social History Tobacco Use Types Packs/Day Years [...] Comments Blood Pressure 129/64 12/26/2013 6:00 PM PROGRAM INSTRUCTOR Pulse 88 02/02/2010 7:13 PM CDT Temperature 37.1 ??C (98.8 ??F) 12/26/2013 3:21 PM CS T Respiratory Rate 16 12/26/2013 6:00 PM PROGRAM INSTRUCTOR Oxygen Saturation 93% 12/26/2013 6:00 PM PROGRAM INSTRUCTOR Inhaled Oxygen Concentration - - Weight 99.8 kg (220 lb) 12/26/2013 3:21 PM PROGRAM INSTRUCTOR Height 160 cm (5' 3) 12/26/2013 3:21 PM PROGRAM INSTRUCTOR Body Mass Index 38.97 12/26/2013 3:21 PM PROGRAM INSTRUCTOR Plan of Treatment Not on file Procedures Procedure Name Priority Date/Time Associated Diagnosis [...] BASIC METABOLIC PANEL STAT 12/26/2013 3:22 PM PROGRAM INSTRUCTOR ASTHMA ACTION PLAN Routine 12/01/2009 2: 51 PM PROGRAM INSTRUCTOR INTERMITTENT ASTHMA from Last 3 Months or [...] normal limits. SHAHID AMADOR MD SYSTEM ID: ??[id number] Narrative 05/31/2024 3:11 PM CDT XR SPINE [...] normal limits. SHAHID AMADOR MD SYSTEM ID: [id number] Dasha Goss MD IMG DIAGNOSTIC IM AGING [...] C6-C7. SREEDHAR ENGLISH MD Dasha Goss MD [facility] MRI ORDERABLE S * MA Screen Bilateral [...] of the left breast. Dasha Goss MD IMG MAMMOGRAPHY O RDERABLES * CT Chest Lung [...] Basic metabolic panel (BMP) (12/26/2013 3:22 PM PROGRAM INSTRUCTOR) Sodium 140 133 - 144 mmol/L [facility] Potassium 3.8 3.4 - 5.3 mmol/L [facility] Chloride 101 94 - 109 mmol/L [facility] Carbon Dioxide 31 20 - 32 mmol/L [facility] Anion Gap 9 6 - 17 mmol/L [facility] Glucose 86 60 - 99 mg/dL [facility] Urea Nitrogen 15 7 - 30 mg/dL [facility] Creatinine 0.87 0.52 - 1.04 mg/dL [facility] GFR Estimate 68 >60 mL/min/1.7 m2 [facility] GFR Estimate If Black 82 >60 mL/min/1.7 m2 [facility] Calcium 9.0 8.5 - 10.4 mg/dL [facility] Blood specimen (specimen) 12/26/2013 3:22 PM PROGRAM INSTRUCTOR 12/26/2013 4:05 PM PROGRAM INSTRUCTOR Rodney Smalls MD LAB - BLOOD ORDERABL ES [facility] from Last 3 Months or Most Recently Relevant to Health Maintenance Care Teams Marine Resource Economist Relationship Specialty Start Date End Date Yon Meyer MD [facility] [address] [place] [address] PCP - General Family Practice 04/13/19
== END 2024-07-15 14:04 | disposition home or self-care (01) ==
LOC: NFLDREF 07-17 23:20
PROVIDERS: PCP Family Medicine; Referring Provider Family Medicine; Visit Provider Family Medicine
DX: R31.9 Hematuria, unspecified (principal)
CPT/HCPCS: 87086

== ENCOUNTER 2024-08-09 08:06 | Outpatient (CLI) | payer MEDICARE, SELFPAY ==
--- OUTSIDE RECORDS SUMMARY | 2024-08-09 08:09 | XMS_ITS | Referral Summary ---
Author Organization [place] Address [facility] [place] [address] Care Team Providers Care Automobile Service Advisor Name Role Phone Yon Meyer MD Primary Care Provider [phone] Encounters Date Type Department Care Team Description 05/31/2024 Travel 05/31/2024 2:16 PM CDT - 05/31/2024 11:59 PM CDT Hospital Encounter [facility] [address] [place] [address] Dasha Goss MD Scoliosis Discharge Disposition: Home or Self Care 05/31/2024 1:08 PM CDT - 05/31/2024 2:15 PM CDT Hospital Encounter [facility] [address] [place] [phone] Dasha Goss MD Other cervical disc displacement, [...] Currently managed with follow up imaging by [facility] Results Team. CARDIOVASCULAR SCREENING; LDL GOAL LESS [...] Comments Blood Pressure 129/64 12/26/2013 6:00 PM HOUSING GRANT ANALYST Pulse 88 02/02/2010 7:13 PM CDT Temperature 37.1 ??C (98.8 ??F) 12/26/2013 3:21 PM CS T Respiratory Rate 16 12/26/2013 6:00 PM HOUSING GRANT ANALYST Oxygen Saturation 93% 12/26/2013 6:00 PM HOUSING GRANT ANALYST Inhaled Oxygen Concentration - - Weight 99.8 kg (220 lb) 12/26/2013 3:21 PM HOUSING GRANT ANALYST Height 160 cm (5' 3) 12/26/2013 3:21 PM HOUSING GRANT ANALYST Body Mass Index 38.97 12/26/2013 3:21 PM HOUSING GRANT ANALYST Plan of Treatment Not on file Procedures [...] BASIC METABOLIC PANEL STAT 12/26/2013 3:22 PM HOUSING GRANT ANALYST ASTHMA ACTION PLAN Routine 12/01/2009 2: 51 PM HOUSING GRANT ANALYST INTERMITTENT ASTHMA from Last 3 Months or [...] normal limits. SHAHID AMADOR MD SYSTEM ID: ??[id number] Narrative 05/31/2024 3:11 PM CDT XR SPINE [...] normal limits. SHAHID AMADOR MD SYSTEM ID: [id number] Dasha Goss MD IMG DIAGNOSTIC IM AGING [...] C6-C7. SREEDHAR ENGLISH MD Dasha Goss MD [facility] MRI ORDERABLE S * MA Screen Bilateral [...] Basic metabolic panel (BMP) (12/26/2013 3:22 PM HOUSING GRANT ANALYST) Sodium 140 133 - 144 mmol/L [facility] Potassium 3.8 3.4 - 5.3 mmol/L [facility] Chloride 101 94 - 109 mmol/L [facility] Carbon Dioxide 31 20 - 32 mmol/L [facility] Anion Gap 9 6 - 17 mmol/L [facility] Glucose 86 60 - 99 mg/dL [facility] Urea Nitrogen 15 7 - 30 mg/dL [facility] Creatinine 0.87 0.52 - 1.04 mg/dL [facility] GFR Estimate 68 >60 mL/min/1.7 m2 [facility] GFR Estimate If Black 82 >60 mL/min/1.7 m2 [facility] Calcium 9.0 8.5 - 10.4 mg/dL [facility] Blood specimen (specimen) 12/26/2013 3:22 PM HOUSING GRANT ANALYST 12/26/2013 4:05 PM HOUSING GRANT ANALYST Rodney Smalls MD LAB - BLOOD ORDERABL ES [facility] from Last 3 Months or Most Recently Relevant to Health Maintenance Care Teams Automobile Service Advisor Relationship Specialty Start Date End Date Yon Meyer MD [facility] [address] [place] [address] PCP - General Family Practice 04/13/19
--- OUTSIDE RECORDS SUMMARY | 2024-08-09 08:09 | XMS_ITS | Clinical Summary ---
[facility] Address [address] [place] [address] Care Team Providers Care Copper Miner Blasting Name Role Phone Needs Pcp, Assignment Primary Care Provider [phone] Source Comments You are receiving this document as you are listed as the primary care provider,follow-up provider, or the patient has been referred to you for consultation.This is in compliance with the Medicare and[facility] Hospital[facility] EHR Incentive Program,which states Providers who transition their patient to another setting of careor provider of care or refers their patient to another provider of care shouldprovide summary care record for each transition of care or referral. [employer] Allergies Active Allergy Reactions Criticality Noted Date [...] mg) by mouth daily. Active nystatin-triamcinolone (MYCOLOG-II) 742517-5.1 UNIT/GM-% cream Apply topically daily. 07/30/2023 Active [...] sites 04/04/2009 Overview (07/09/2017): Pain Joints Multiple Immunizations Name Administration Dates Next Due Flu Vac (3+ yrs) 10/24/2008,10/22/2006 HepB Adult (Engerix-B, 20+ y rs, 3 dose series) 07/04/2020,11/20/2015,03/16/2003 HepB, Unspecified Formulation 11/20/2015, 003 Influenza IIV4 (Quadrivalent ) 0.5mL (94892) 09/09/2022,10/18/2021,08/29/2020,2018,10/20/2018,09/16/2017,09/24/2016,1 11/17/2014,08/03/2014,09/02/2012, 010,10/24/2008,10/22/2006 Influenza aIIV3 65+ Years (Fluad) 09/02/2012,02/2010 Influenza, Unspecified Formulation 09/16,09/24/2016,09/17/2015,2013 MMR 04/11/2011 PPSV23 [...] 09/02/2013 09/02/2012 Mammogram 05/06/2023 05/06/2022, 02/2021, 04/07/2020 Lung Cancer Screening 01/16/2024 01/15/2023 , 07/16/2022, 07/05/2021, Additional history exists Dexa 2024 COVID-19 Vaccine ( season) 2024 03/06/2022, 08/28/2021, 02/26/2021, Additional history exists Influenza (#1) 2024 09/09/2022, 12/2020, 08/29/2020, Additional history exists Diabetes: Eye Exam 08/05/2024 08/05/2023, 0 08/05/2023, 07/09/2022, Additional history exists DTaP/Tdap/Td (3 - Tdap) 10/18/2031 10/18/2021, 04/11 RSV (1 - 1-dose 75+ series) 2034 HepB Completed 07/04/2020, 02/2016, 11/20/2015, Additional history [...] age to complete this topic Care Teams Copper Miner Blasting Relationship Specialty Start Date End Date Needs Pcp, [place], [place] [id number] PCP - General 07/04/22
--- OUTSIDE RECORDS SUMMARY | 2024-08-09 08:09 | XMS_ITS | Encounter Summary ---
Author Organization [place] Address [address] [facility] [place] [address] Care Team Providers Care Manager Marketing Communication Name Role Phone Yon Meyer MD Primary Care Provider [phone] Reason for Referral * Diagnostic Imaging XR (Routine) - Pending Review Specialty Diagnoses / Procedures Referred By Contac t Referred To Contact Radiology. Diagnoses Scoliosis Procedures XR Spine Complete Scoliosis 2 Views Dasha Goss MD [address] [address] Referral ID Status Reason Start Date Expiration Date V isits Requested Visits Authorized [id number] Pending Review 05/06/2024 05/06/2025 1 1 Reason for Visit * Diagnostic Imaging XR (Routine) - Pending Review Specialty Diagnoses / Procedures Referred By Contac t Referred To Contact Radiology. Diagnoses Scoliosis Procedures XR Spine Complete Scoliosis 2 Views Dasha Goss MD [address] [address] Referral ID Status Reason Start Date Expiration Date V isits Requested Visits Authorized [id number] Pending Review 05/06/2024 05/06/2025 1 1 Encounter Details Date Type Department Care Team (Latest Contact Info) Description 05/31/2024 2:16 PM CDT - 05/31/2024 11:59 PM CDT Hospital Encounter [facility] [address] [place] [phone] Dasha Goss MD [facility] AND [address] [address] Scoliosis Discharge Disposition: Home or [...] normal limits. KEENA AMADOR MD SYSTEM ID: ??[id number] Narrative 05/31/2024 3:11 PM CDT XR SPINE [...] normal limits. KEENA AMADOR MD SYSTEM ID: [id number] Dasha Goss MD IMG DIAGNOSTIC IM AGING ORDERABLES documented in this encounter Visit Diagnoses Diagnosis Scoliosis Scoliosis (and kyphoscoliosis), idiopathic documented in this encounter Care Teams Manager Marketing Communication Relationship Specialty Start Date End Date Yon Meyer MD [facility] [address] [place] [address] PCP - General Family Practice 04/13/19 documented as of this encounter
--- OUTSIDE RECORDS SUMMARY | 2024-08-09 08:09 | XMS_ITS | Encounter Summary ---
Author Organization [place] Address [address] [facility] [address] Care Team Providers Care Seafood Preparer Name Role Phone Yon Meyer MD Primary Care Provider [phone] Encounter Details Date Type Department Care Team [...] on filedocumented in this encounter Care Teams Seafood Preparer Relationship Specialty Start Date End Date Yon Meyer MD [facility] [address] [place] [address] PCP - General Family Practice 04/13/19 documented as of this encounter
--- OUTSIDE RECORDS SUMMARY | 2024-08-09 08:09 | XMS_ITS | Clinical Summary ---
Author Organization [place] Address [address] [facility] [place] [address] Care Team Providers Care Clinical Review Nurse Name Role Phone Yon Meyer MD Primary Care Provider [phone] Allergies Active Allergy Reactions Criticality Noted Date [...] Currently managed with follow up imaging by [employer] [place] Results Team. CARDIOVASCULAR SCREENING; LDL GOAL LESS [...] Hospital Encounter [facility] [address] [place] [phone] Dasha Goss MD Scoliosis Discharge Disposition: Home or Self Care 05/31/2024 1:08 PM CDT - 05/31/2024 2:15 PM CDT Hospital Encounter [facility] [address] [place] [phone] Dasha Goss MD Other cervical disc displacement, [...] Comments Blood Pressure 129/64 12/26/2013 6:00 PM BONSAI CULTURIST Pulse 88 02/02/2010 7:13 PM CDT Temperature 37.1 ??C (98.8 ??F) 12/26/2013 3:21 PM CS T Respiratory Rate 16 12/26/2013 6:00 PM BONSAI CULTURIST Oxygen Saturation 93% 12/26/2013 6:00 PM BONSAI CULTURIST Inhaled Oxygen Concentration - - Weight 99.8 kg (220 lb) 12/26/2013 3:21 PM BONSAI CULTURIST Height 160 cm (5' 3) 12/26/2013 3:21 PM BONSAI CULTURIST Body Mass Index 38.97 12/26/2013 3:21 PM BONSAI CULTURIST Plan of Treatment Health Maintenance Due Date [...] BMP 12/26/2014 12/26/2013 RSV VACCINE (1 - Risk 60-74 years 1-dose series) 2019 FALL RISK ASSESSMENT 2024 MEDICARE ANNUAL WELLNESS VISIT 2024 06/28/2021 COVID-19 Vaccine ( season) 2024 09/10/2023, 10/25/2022, 03/06/2022, Additional history exists INFLUENZA VACCINE (#1) 2024 3, 09/09/2022, 10/18/2021, [...] BASIC METABOLIC PANEL STAT 12/26/2013 3:22 PM BONSAI CULTURIST ASTHMA ACTION PLAN Routine 12/01/2009 2: 51 PM BONSAI CULTURIST INTERMITTENT ASTHMA from Last 3 Months or [...] normal limits. SHAHID AMADOR MD SYSTEM ID: ??[id number] Narrative 05/31/2024 3:11 PM CDT XR SPINE [...] normal limits. SHAHID AMADOR MD SYSTEM ID: [id number] Dasha Goss MD IMG DIAGNOSTIC IM AGING [...] C6-C7. SREEDHAR ENGLISH MD Dasha Goss MD [facility] MRI ORDERABLE S * MA Screen Bilateral [...] of the left breast. Dasha Goss MD [facility] MAMMOGRAPHY O RDERABLES * CT Chest Lung [...] Basic metabolic panel (BMP) (12/26/2013 3:22 PM BONSAI CULTURIST) Sodium 140 133 - 144 mmol/L [facility] Potassium 3.8 3.4 - 5.3 mmol/L [facility] Chloride 101 94 - 109 mmol/L [facility] Carbon Dioxide 31 20 - 32 mmol/L [facility] Anion Gap 9 6 - 17 mmol/L [facility] Glucose 86 60 - 99 mg/dL [facility] Urea Nitrogen 15 7 - 30 mg/dL [facility] Creatinine 0.87 0.52 - 1.04 mg/dL [facility] GFR Estimate 68 >60 mL/min/1.[address] [facility] GFR Estimate If Black 82 >60 mL/min/1.[address] [facility] Calcium 9.0 8.5 - 10.4 mg/dL [facility] Blood specimen (specimen) 12/26/2013 3:22 PM BONSAI CULTURIST 12/26/2013 4:05 PM BONSAI CULTURIST Rodney Smalls MD LAB - BLOOD ORDERABL ES [facility] from Last 3 Months or Most Recently Relevant to Health Maintenance Care Teams Clinical Review Nurse Relationship Specialty Start Date End Date Yon Meyer MD [facility] [address] [place] [address] PCP - General Family Practice 04/13/19
--- OUTSIDE RECORDS SUMMARY | 2024-08-09 08:10 | XMS_ITS | Clinical Summary ---
Author Organization [facility] [place], [place] [address] Care Team Providers Care Penal Officer Name Role Phone Sterling Gayle MD Unavailable Unavailable Sudheer Noonan MD Unavailable Unavailable Shmuel Mcknight MD Unavailable [phone] Nadir Lewis DPM Unavailable [phone] Yon Meyer MD Primary Care Provider Unavail [...] mouth once daily. Prescribed by Dr. Sudheer Noonan. 0 09/02/2012 Active Lysine (L-LYSINE HCL) 500 [...] with meals. 0 11/20/2015 Active albuterol HFA (PRO-AIR,VENTOLIN,VA OVENTIL) 90 mcg/actuation inhalerIndications:M ild persistent asthma [...] extremity 12/11/19 13 Moderate persistent asthma 09/30/2012 Overview (09/30/2012): Spirometry 09/30/14 FEV1 89%. Based on symptoms, started QVAR 40mg 2 puffs twice daily. Asthma Action Plan reviewed. Presbyopia 06/02/2012 After-cataract, obscuring vision 06/02/2012 Cortical senile cataract 06/02/2012 Old retinal detachment, partial 06/02/2012 Arthritis, degenerative 03/19/2011 Cervical disc displacement 03/19/2011 Overview (03/19/2011): Per old records Vitamin D deficiency 03/19/2011 Prediabetes 03/19/2011 Hypercholesteremia 04/26/2010 Overview (04/26/2010): Labs 03/20/10 Encounters for other specifi ed administrative purpose(V68.89) 04/12/2010 Morbid obesity 03/21/2010 Overview (03/21/2010): Did fasting labs- [facility] [place] ([place])_they are prescribing phentermine Allergic rhinitis, cause unspecified 03/21/2010 Bone spur of acromioclavicular joint 03/21/2010 Overview (03/21/2010): Left shoulder- Dr. Jared [facility] Pain in joint, ankle and foot 03/21/2010 Asthma, exercise induced 02/21/2010 Overview (03/21/2010): Triggers: Exercise Laying down triggers this. Assessment & Plan (08/26/2011 4:35 PM CDT): Asthma Action Plan done 08/26/11. Shamika Sandoval PA-C, 08/26/2011 4:35 PM Low back pain 06/07/2009 Pain in thoracic spine 06/07/2009 Muscular deconditioning 06/07/2009 Fibromyalgia 06/07/2009 Overview (03/21/2010): richi neurological - tried lyrica EMG- nerve impingement found on left leg Ankle instability 05/22/2009 Overview (03/21/2010): Right side- weakness, [facility]_ may need surgery to reinforce tendons Adjustment disorder with depressed mood 10/17/20 08 Overview (03/21/2010): Doctor. Skip RAGLAND , for depression, pain and anxiety (at [facility]) [phone] 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 mark [phone] rehab Myalgia and myositis, unspecified 09/23/2008 Degeneration of lumbar or lumbosacral interverte bral disc 07/17/2008 Tobacco use disorder 07/17/2008 Overview (03/21/2010): Less than 1 ppd Anxiety state, unspecified 04/22/2008 Unspecified essential hypertension 12/20/2007 Resolved Problems Problem Noted Date Diagnosed Date Resolved Date Abnormal blood sugar 03/21/2010 012 Overview (03/21/2010): Just had it rechecked 03/26 and results [...] pur e alcohol) 2-3 drinks per week Social Connections Answer Date Recorded Frequency of Communication with Friends and Fami ly Not on file 08/01/2024 Sex and Gender Information Value Date Recorded [...] for age 50+ (1 of 2) 2009 Pneumococcal series for age 65+ (2 of 2 - PCV) 09/02/2013 09/02/2012 Depression screening for age 12+ 01/22/2017 01/23/20 16 BMI (ht and wt on same day) for age 18+ 08/17/2017 08/17/2016, 06/11/2016, 01/23/2016 Colonoscopy through age 75 06/23/201806/23, 12/17/2010, 10/17/2010 (Postponed) Mammogram for age 45-75 01/16/2019 01/17/20 18, 12/09/2016, 11/29/2016, Additional history exists Tetanus booster 04/11/2021 04/11/2011, 11/2009 (Postponed) Lipids for age 45-75 06/11/2021 06/11/2016, 12/21/2015, 04/14/2015, Additional history exists DEXA/DXA scan for age 65+ 2024 COVID-19 vaccine series ( season) 2024 03/06/2022, 08/28/2021, 02/26/2021, Additional history exists Influenza for age 65+ 07/18/2024 09/24/2016 , 09/17/2015, 08/03/2014, Additional history exists Tdap Completed 04/11/2011 Medical Devices Implanted Type Area Quarry Plant Crusher Operator Device Identifier Shelf Expiration Date Model / Serial / Lot Sleeve Silcn 70 - [id number] Implanted:Qty: 1 on 10/01/2010 at [facility] Right: Eye [employer] 70# / / [id number] Bands Silcn 41smira - [id number] Implanted:Qty: 1 on 10/01/2010 at [facility] Right: Eye [employer] 41S# / / [id number] Procedures Procedure Name Priority Date/Time Associated Diagnosis Comments XR MAMMO BILAT SCREENING Routine 01/16/2018 11:30 AM KNOCKER OFF Visit for screening mammogram LIPID PANEL W REFLEX MEASURED LDL Routine 06/11/2016 10:19 AM CDT Hypercholesteremia SCAN-COLONOSCOPY 06/23/2015 1:00 PM CDT from Last 3 Months or Most Recently Relevant to Health Maintenance Results * XR MAMMO BILAT SCREENING (01/16/2018 11:30 AM KNOCKER OFF) Anatomical Region Laterality Modality BREASTS, Breast Left, Breast Right Bilateral Mammography Impressions 01/19/2018 9:24 AM KNOCKER OFF ??There is no radiographic evidence for malignancy. ??Recommend annual mammograms. A lay language report of this examination will be provided to the patient. MAMMOGRAM ASSESSMENT: ??ACR 2 Benign Narrative 01/19/2018 9:24 AM KNOCKER OFF XR MAMMO BILAT SCREENING [[id number]] CLINICAL HISTORY: ??This is an asymptomatic 57 y.o. patient. INDICATION FOR EXAM: Mammogram Screening. TECHNIQUE: CC & MLO views were obtained. ??This digital study was evaluated with the assistance of Computer-Aided Detection. COMPARISON FILMS: Yes 11/29/16 [facility] 11/27/15 [facility] FINDINGS: ??Mammographically, the breast tissue is heterogeneously dense, which could obscure detection of small masses. ??No suspicious masses or microcalcifications. ??Benign appearing mass(es) within both breasts. Yon Meyer MD MAMMO * (ABNORMAL) LIPID PANEL W REFLEX MEASURED LDL (06/11/2016 10:19 AM CDT) CHOLESTEROL,TOTAL 228(H) 100 - 199 mg/dL 06/11/2016 6:27 PM CDT [facility] TRIGLYCERIDES 188(H) <150 mg/dL 06/11/2016 6:27 PM CDT [facility] HDL CHOLESTEROL 34(L) >40 mg/dL 06/11/2016 6:27 PM CDT [facility] NON-HDL CHOLESTEROL 194(H) <145 mg/dl 06/11/2016 6:27 PM CDT [facility] CHOL/HDL RATIO 6.71(H) <4.50 06/11/2016 6:27 PM CDT [facility] LDL CHOLESTEROL 156(H) <=130 mg/dL 06/11/2016 6:27 PM CDT [facility] PATIENT STATUS FASTING 06/11/2016 6:27 PM CDT [facility] Blood BLOOD SPECIMEN / Unknown Venipuncture / Unknown 06/11/2016 10:19 AM CDT 06/11/2016 10:19 AM CDT Briana Frye MD CHEMISTRY [facility] [address] [place] [address], [place] * SCAN-COLONOSCOPY (06/23/2015 1:00 PM CDT) Narrative Transcriptions Aleah Randall MD - 06/23/2015 12:22 PM CDT [facility] [address], [address], [place] [address] Patient Name: Leigh Ferro Gender: Female Exam Date: 06/23/2015 Visit Number: [id number] Age: 54 Years Date of : 1960 Attending MD: Aleah Randall MD Medical Record#: [id number] ----- Procedure: Colonoscopy Indications: Diarrhea personal history [...] 9:55 AM 10/02/2010 2:26 AM Care Teams Penal Officer Relationship Specialty Start Date End Date Yon Meyer MD [address] [place] [address] PCP - General Family Practice 01/21/18 Sterling Gayle MD Obstetrics and Gynecology 05/04/12 Sudheer Noonan MD Psychiatry 01/14/14 Shmuel Mcknight MD [address] [place] [address] Orthopedics Surgery - Orthopedics 11/20/15 Nadir Lewis, DPM [address] [place] [address] PODIATRY Podiatry 11/20/15
--- OUTSIDE RECORDS SUMMARY | 2024-08-09 08:10 | XMS_ITS | Encounter Summary ---
Author Organization [place] Address [address] [place] [address] Care Team Providers Care Medical Driver Name Role Phone Yon Meyer MD Primary Care Provider [phone] Reason for Referral * Diagnostic Imaging MRI (Routine) - Closed Specialty Diagnoses / Procedures Referred By Micah mtz Referred To Contact Radiology. Diagnoses Other cervical disc displacement, unspecified cervical region Radiculopathy, site unspecified Scoliosis, unspecified Procedures MR Cervical Spine w/o Contrast Dasha Goss MD [address] [address] Referral ID Status Reason Start Date Expiration Date Visits Re quested Visits Authorized [id number] Closed 05/06/2024 05/06/2025 1 1 Reason for Visit * Diagnostic Imaging MRI (Routine) - Closed Specialty Diagnoses / Procedures Referred By Contac t Referred To Contact Radiology. Diagnoses Other cervical disc displacement, unspecified cervical region Radiculopathy, site unspecified Scoliosis, unspecified Procedures MR Cervical Spine w/o Contrast Dasha Goss MD [address] [address] Referral ID Status Reason Start Date Expiration Date Visits Re quested Visits Authorized [id number] Closed 05/06/2024 05/06/2025 1 1 Encounter Details Date Type Department Care Team (Latest Contact Info) Description 05/31/2024 1:08 PM CDT - 05/31/2024 2:15 PM CDT Hospital Encounter [facility] [address] [place] [address] [facility] AND [address] [address] Other cervical disc displacement, unspecified [...] unspecified documented in this encounter Care Teams Medical Driver Relationship Specialty Start Date End Date Yon Meyer MD [facility] [address] [place] [address] PCP - General Family Practice 04/13/19 documented as of this encounter
== END 2024-08-09 08:07 | disposition home or self-care (01) ==
PROVIDERS: PCP Family Medicine; Visit Provider Family Medicine
DX: E11.42 Type 2 diabetes mellitus with diabetic polyneuropathy (principal); E11.22 Type 2 diabetes mellitus with diabetic chronic kidney disease; I12.9 Hypertensive chronic kidney disease with stage 1 through stage 4 chronic kidney disease, or unspecified chronic kidney disease; N18.30 Chronic kidney disease, stage 3 unspecified
CPT/HCPCS: 80053; 82043; 82570; 82607

== ENCOUNTER 2024-11-08 13:51 | Outpatient (CLI) | payer MEDICARE, SELFPAY | END 2024-11-08 13:52 | disposition home or self-care (01) | LOC: NFLDREF 11-09 01:14 | PROVIDERS: PCP Family Medicine; Referring Provider Family Medicine; Visit Provider Family Medicine | DX: E11.42 Type 2 diabetes mellitus with diabetic polyneuropathy (principal); E78.5 Hyperlipidemia, unspecified; I12.9 Hypertensive chronic kidney disease with stage 1 through stage 4 chronic kidney disease, or unspecified chronic kidney disease; N18.30 Chronic kidney disease, stage 3 unspecified; I10 Essential (primary) hypertension; M79.7 Fibromyalgia; F41.1 Generalized anxiety disorder; M19.90 Unspecified osteoarthritis, unspecified site | CPT/HCPCS: 80053; 80061; 82043; 82570 ==

== ENCOUNTER 2024-12-13 13:57 | Outpatient (CLI) | payer MEDICARE, SELFPAY | END 2024-12-13 13:58 | disposition home or self-care (01) | LOC: NFLDREF 12-20 00:41 | PROVIDERS: PCP Family Medicine; Referring Provider Family Medicine; Visit Provider Family Medicine | DX: Z11.1 Encounter for screening for respiratory tuberculosis (principal) | CPT/HCPCS: 86480 ==

== ENCOUNTER 2024-12-21 13:11 | Outpatient (CLI) | payer MEDICARE, SELFPAY | END 2024-12-21 13:12 | disposition home or self-care (01) | LOC: NFLDREF 12-22 01:54 | PROVIDERS: PCP Family Medicine; Referring Provider Family Medicine; Visit Provider Family Medicine | DX: I12.9 Hypertensive chronic kidney disease with stage 1 through stage 4 chronic kidney disease, or unspecified chronic kidney disease (principal); N18.30 Chronic kidney disease, stage 3 unspecified; I10 Essential (primary) hypertension; R45.86 Emotional lability | CPT/HCPCS: 82306; 83001; 84443 ==

== ENCOUNTER 2025-01-25 12:53 | Outpatient (CLI) | payer MEDICARE, SELFPAY | END 2025-01-25 12:54 | disposition home or self-care (01) | LOC: US 12:54 | PROVIDERS: PCP Family Medicine; Visit Provider Family Medicine | DX: Z13.6 Encounter for screening for cardiovascular disorders (principal); I70.0 Atherosclerosis of aorta; Z87.891 Personal history of nicotine dependence | CPT/HCPCS: 76706 ==